=== PATIENT | male | born 1945 | race Caucasian/White ===

== ENCOUNTER → 2017-02-12 | Outpatient (CLI) | payer BC ==
[~2017-02-12] MED LIST: LISI5TAB PO
[2017-02-12 10:55] LABS: HEMATOCRIT 44.6 % (42-52); MEAN CELL VOLUME 87.8 fL (80-100); MEAN CORPUSCULAR HEMOGLOBIN 29.7 pg (25-34); MEAN CORPUSCULAR HGB CONC 33.9 g/dl (32-36); MEAN PLATELET VOLUME 9.7 fL (7.4-10.4); PLATELET COUNT 265 K/uL (130-400); RED BLOOD COUNT 5.08 M/uL (4.7-6.1); WHITE BLOOD COUNT 5.75 K/uL (4.8-10.8)
[2017-02-12 11:22] LABS: ALT/SGPT 26 U/L (12-78); AST/SGOT 21 U/L (15-37); BASO % 0.9 %; BASO ABS # 0.05 K/uL (0-0.2); BLOOD UREA NITROGEN 21 mg/dl (7-18); BUN/CREATININE RATIO 27.6 (10-20); CALCIUM 8.6 mg/dl (8.5-10.1); CARBON DIOXIDE 28 mmol/L (21-32); CHLORIDE 108 mmol/L (98-107); COMPLETE YES; CREATININE 0.76 mg/dl (0.60-1.40); EOS % 5.2 %; GLUCOSE 96 mg/dl (70-99); IG% 0.2 %; LARGE PLATELETS 1+; LYMPH % 52.3 %; LYMPH ABS # 3.01 K/uL (1.2-3.4); MONO % 9.2 %; NEUT % 32.2 %; POTASSIUM 4.1 mmol/L (3.5-5.1); SODIUM 142 mmol/L (136-145)
[2017-02-12 11:33] LABS: ALB/GLOB RATIO 1.1 (0.9-2); ALKALINE PHOSPHATASE 91 U/L (45-117); CHOLESTEROL 214 mg/dl (0-200); HDL CHOLESTEROL 72 mg/dl; LDL CHOLESTEROL CALCULATED 127 mg/dl; TRIGLYCERIDES 74 mg/dl (0-150); VERY LOW DENSITY LIPOPROT CALC 15 mg/dl
== END | disposition home or self-care (01) ==
LOC: C.LAB1850 08:21
PROVIDERS: ATTEND Physician Assistant
DX: Z00.00 Encounter for general adult medical examination without abnormal findings (principal); E78.5 Hyperlipidemia, unspecified; K21.9 Gastro-esophageal reflux disease without esophagitis

== ENCOUNTER → 2017-08-13 | Outpatient (CLI) | payer BC ==
[~2017-08-13] MED LIST changes: +ALPR0.25 PO; +ASPI81TA28 PO; +DOXY100C76 PO
[2017-08-13 17:14] LABS: BASO % 0.5 %; BASO ABS # 0.04 K/uL (0-0.2); COMPLETE YES; EOS % 3.3 %; HEMATOCRIT 46.7 % (42-52); IG% 0.1 %; LYMPH % 38.5 %; LYMPH ABS # 3.06 K/uL (1.2-3.4); MEAN CELL VOLUME 89.1 fL (80-100); MEAN CORPUSCULAR HEMOGLOBIN 29.4 pg (25-34); MEAN PLATELET VOLUME 10.2 fL (7.4-10.4); NEUT % 50.6 %; PLATELET COUNT 263 K/uL (130-400); RED BLOOD COUNT 5.24 M/uL (4.7-6.1); WHITE BLOOD COUNT 7.95 K/uL (4.8-10.8)
[2017-08-13 17:29] LABS: ALT/SGPT 31 U/L (12-78); AST/SGOT 22 U/L (15-37); BLOOD UREA NITROGEN 21 mg/dl (7-18); BUN/CREATININE RATIO 28.3 (10-20); CALCIUM 8.6 mg/dl (8.5-10.1); CARBON DIOXIDE 25 mmol/L (21-32); CHLORIDE 106 mmol/L (98-107); CREATININE 0.76 mg/dl (0.60-1.40); GLUCOSE 77 mg/dl (70-99); POTASSIUM 3.9 mmol/L (3.5-5.1); SODIUM 141 mmol/L (136-145)
[2017-08-13 17:40] LABS: ALB/GLOB RATIO 1.1 (0.9-2); ALKALINE PHOSPHATASE 105 U/L (45-117); THYROID STIMULATING HORMONE 0.873 uIu/ml (0.300-4.500)
[2017-08-13 17:49] LABS: LYME DISEASE AB IGG NEG (NEG)
[2017-08-13 17:54] LABS: LYME DISEASE AB IGM EQUIVOCAL (NEG)
[2017-08-17 19:04] LABS: 18KDIGG BAND NONREACTIVE (NONREACTIVE); 23KDIGG BAND NONREACTIVE (NONREACTIVE); 23KDIGM BAND REACTIVE (NONREACTIVE); 28KDIGG BAND NONREACTIVE (NONREACTIVE); 30KDIGG BAND REACTIVE (NONREACTIVE); 39KDIGG BAND NONREACTIVE (NONREACTIVE); 39KDIGM BAND NONREACTIVE (NONREACTIVE); 41KDIGG BAND NONREACTIVE (NONREACTIVE); 41KDIGM BAND REACTIVE (NONREACTIVE); 45KDIGG BAND NONREACTIVE (NONREACTIVE); 58KDIGG BAND NONREACTIVE (NONREACTIVE); 66KDIGG BAND REACTIVE (NONREACTIVE); 93KDIGG BAND NONREACTIVE (NONREACTIVE)
== END | disposition home or self-care (01) ==
LOC: C.LABBC 14:23
PROVIDERS: ATTEND Physician Assistant
DX: R47.89 Other speech disturbances (principal)

== ENCOUNTER → 2017-08-22 | Outpatient (CLI) | payer BC ==
[~2017-08-22] MED LIST changes: -ALPR0.25 PO; -ASPI81TA28 PO; -DOXY100C76 PO; +GADAVIST IV PRN
--- NOTE | 2017-08-22 15:49 | DIAGNOSTIC IMAGING REPORT ---
ORBIT RADIOGRAPHS 3 VIEWS HISTORY: pre-MRI screening. COMPARISON: None. FINDINGS: There are no radiopaque foreign bodies identified within the orbits. IMPRESSION: No radiopaque foreign bodies identified within the orbits. Electronically signed by: Ricardo Lopes M.D. 08/22/2017 3:48 PM Dictated Date/Time: 08/22/2017 3:47 PM
--- NOTE | 2017-08-22 16:49 | DIAGNOSTIC IMAGING REPORT ---
MRI OF THE BRAIN COMBO CLINICAL HISTORY: Blurry vision. Word finding difficulties. Disorientation. COMPARISON STUDY: No priors. TECHNIQUE: MRI of the brain was performed utilizing various T1 and T2-weighted sequences in the axial, sagittal, and coronal planes. Contrast-enhanced sequences were acquired following the administration of 8 cc of Gadavist. FINDINGS: Brain parenchyma: There are age-related involutional changes noting mild to moderate patchy subcortical and periventricular microangiopathic disease. There is no hemorrhage or mass effect. There is no restricted diffusion to suggest acute ischemia. No enhancing mass lesion is identified on the postcontrast images. Olivier-white matter differentiation is preserved. No extra-axial fluid collection is seen. The cerebellar tonsils are normal in configuration. Ventricles, sulci, and cisterns: Prominent secondary to involutional change. Pituitary and sella: Unremarkable. Intracranial vasculature: Normal flow voids are maintained at the skull base. Orbits: The bony orbits are grossly intact. Orbital contents are normal in appearance. Sinuses and mastoids: Clear. Calvarium: There is approximately 3.0 cm T1 and T2 hypointense lesion in the left posterior parietal calvarium. There is no abnormal enhancement identified on the postcontrast images. No additional calvarial lesion is suggested. Cervical cord: Partially visualized cervical spinal cord is normal in morphology and signal intensity. IMPRESSION: 1. Age-related changes as above with no hemorrhage, enhancing mass, or evidence of acute ischemia. 2. There is a 3 cm indeterminant but low suspicion lesion in the left parietal calvarium. Correlation with a CT scan of the brain is recommended for further assessment. Electronically signed by: Brady Hu M.D. 08/22/2017 4:48 PM Dictated Date/Time: 08/22/2017 4:42 PM
== END | disposition home or self-care (01) ==
LOC: C.MRI 15:01
PROVIDERS: ATTEND Physician Assistant
DX: R47.89 Other speech disturbances (principal)

== ENCOUNTER → 2017-08-30 | Outpatient (CLI) | payer BC ==
[~2017-08-30] MED LIST changes: +ALPR0.25 PO; +ASPI81TA28 PO; +DOXY100C76 PO; -GADAVIST IV PRN; +OPTIRAY 320 IV PRN
--- NOTE | 2017-08-30 15:38 | DIAGNOSTIC IMAGING REPORT ---
CT HEAD COMBO CT DOSE: 1553.72 mGycm TECHNIQUE: Noncontrast images were obtained through the brain in the axial plane. The sequence was repeated following administration of 93 Optiray 320. A dose lowering technique was utilized adhering to the principles of ALARA. HISTORY: ABNORMAL MRI THE BRAIN. CALVARIAL LESION. R93.8 Abnormal MRIPossible [id number] COMPARISON: MRI the brain dated 08/22/2017 FINDINGS: No intra or extra-axial mass lesions are visualized. There is no CT evidence of acute cortical infarction. There is no evidence of midline shift. There is no acute hemorrhage. No calvarial fractures are visualized. There are patchy white matter hypodensities likely on a small vessel basis. There is no evidence of pathologic ventricular dilatation. There is no evidence of acute sinusitis Postcontrast images reveal no pathologically enhancing masses. There is a very subtle 2 cm focus of calvarial sclerosis involving the left parietal vertex. The appearance is nonspecific. In the absence of a known primary malignancy, correlation with a PSA would be recommended. IMPRESSION: 1. Very subtle 2 cm sclerotic lesion involving the left parietal vertex. Correlation with a PSA is recommended. Electronically signed by: Favian Be M.D. 08/30/2017 3:37 PM Dictated Date/Time: 08/30/2017 3:21 PM
== END | disposition home or self-care (01) ==
LOC: C.CTS 14:58
PROVIDERS: ATTEND Physician Assistant
DX: R93.8 Abnormal findings on diagnostic imaging of other specified body structures (principal)

== ENCOUNTER → 2017-09-12 | Day surgery (SDC) | payer BC ==
[2017-08-28 09:20] VITALS: Ht 175.3 cm; Wt 79.5 kg
[~2017-09-12] VITALS: Ht 175.3 cm; Wt 79.5 kg
[~2017-09-12] MED LIST changes: +500ML BSS 0.3ML EPI 1:1000PF IRRIG ONE; +ACETAMINOPHEN 325 MG TAB PO PRN; +AMVISC PLUS 0.8ML SYRINGE INT OCU ONE; +ATROPINE SULFATE 0.1 MG/ML 5ML SYR IV PRN; +BROM0.0911 OP; +BSS FLUSH ONE; +CYCLOPENTOLATE HCL 1% OP SOLN PER DROP CHARGE OPL ONE; +ENDOCOAT 0.85ML SYRINGE INT OCU ONE; +EpHEDrine SULFATE INJ 50 MG/ML AMP IV PRN; +EpINEphrine INJ 1MG/ML AMP 1 MG/ML AMP ONE; +LACTATED RINGER'S 1000ML 500 ML IV SCH; +LIDOCAINE 4% OP SOLN DROP CHARGE ONE; +LIDOCAINE 4% OP SOLN DROP CHARGE OPL SCH; +LIDOCAINE HCL 1% MPF 2 ML VIAL ONE; +MIDAZOLAM HCL 1 MG/ML 2ML VIAL ONE; +MIX: 4ML BSS 1ML EPI 1:1000 PF TOP ONE; +MOXIFLOXACIN OPH SOLN PER DROP CHARGE ONE; +NURSING VERBAL MED ORDER ONE; +OFLO0.3S OP; -OPTIRAY 320 IV PRN; +PHENYLEPHRINE HCL 2.5% OP SOLN PER DROP CHARGE OPL ONE; +POVIDONE-IODINE OP SOLN 30 ML BTL ONE; +PRED1SUS3 OPL; +PROPARACAINE 0.5% OP SOLN PER DROP CHARGE OPL SCH; +TOBRAMYCIN/DEXAMETHASONE OPH OINT PER APPLN CHARGE ONE; +TROPICAMIDE 1% OP SOLN PER DROP CHARGE OPL ONE
[2017-09-12] MEDS: PHENYLEPHRINE HCL 2.5% OP SOLN PER DROP CHARGE OPL SCH ×3 (08:14→08:25)
[2017-09-12] MEDS: TROPICAMIDE 1% OP SOLN PER DROP CHARGE OPL SCH ×3 (08:15→08:27)
[2017-09-12] MEDS: CYCLOPENTOLATE HCL 1% OP SOLN PER DROP CHARGE OPL SCH ×3 (08:16→08:28)
--- NOTE | 2017-09-12 08:17 | History & Physical Bridge - SC ---
H&P Re-Evaluation Bridge Note: I have examined the patient, reviewed the History & Physical and in the interval since the performance of the History & Physical I have noted the following changes of clinical significance: No changes noted
[2017-09-12] MEDS: MOXIFLOXACIN OPH SOLN PER DROP CHARGE OPL SCH ×3 (08:18→08:29)
--- NOTE | 2017-09-12 09:32 | [facility] Post Operative Brief Note ---
Immediate Operative Summary Operative Date Sep 12, 2017. Pre-Operative Diagnosis Cataract Left Eye Post-Operative Diagnosis Same Procedure(s) Performed Left Cataract Phacoemulsification With Intraocular Lens Implant Surgeon Dr. Eason Orchestra Director Surgeon(s) None Estimated Blood Loss 0 Findings left cataract Specimens 0 Complication(s) None Disposition
[2017-09-12 09:33] VITALS: TEMP 36.5
--- NOTE | 2017-09-12 09:34 | [facility] Operative Report ---
Operative Report Date of Service Sep 12, 2017. Operative Report DATE OF OPERATION: 09/12/17 PREOPERATIVE DIAGNOSIS: Senile nuclear cataract, left eye POSTOPERATIVE DIAGNOSIS: Senile nuclear cataract, left eye PROCEDURE PERFORMED: Phacoemulsification with intraocular lens implantation, left eye SURGEON: Dr. Milton Eason ANESTHESIA: Topical with 1% intracameral lidocaine and monitored anesthesia care COMPLICATIONS: None DESCRIPTION OF PROCEDURE: After positively identifying the patient both verbally and by wristband in the preoperative area, the left eye was marked as the operative eye. The patient was then brought back to the operating room by the anesthesia and nursing staff where they were given a drop of Lidocaine and betadine into the operative eye. They were then sterilely prepped and draped in the standard fashion typical for ophthalmic surgery. Steri-strips were placed along the upper eyelids to keep the lashes back, and a lid speculum was placed into the operative eye. At this point, a documented time out was performed with members of the ophthalmology, nursing, and anesthesia staffs all agreeing upon the correct patient, correct location for surgery, correct procedure, and correct type and power of intraocular lens to be implanted. The microscope was then swung into position. First, a paracentesis wound was made using a sideport blade. Then, in sequence, 1% preservative-free lidocaine followed by Endocoat viscoelastic was injected into the anterior chamber. Next , the main incision was made with a keratome blade in triplanar fashion. A Malyugin ring was inserted due to poor pupil dilation. A sharp cystotome was introduced into the eye and used to create a tear in the anterior capsule, which was directed into a continuous curvilinear capsulorrhexis using Utrata forceps. Hydrodissection was then performed with BSS on a flat-tip cannula. Next, the phacoemulsification handpiece was introduced into the eye and used to remove the nucleus in a eaibpt-igy-lybycsa fashion. This was done without complication and then the irrigation-aspiration handpiece was introduced into the eye and used to remove all remaining cortical and epinuclear material. Amvisc was then injected into the anterior chamber as well as into the capsular bag and using the lens injector system, an MX60 20.0 D lens, serial number [id number], and expiration date 02/2020 was injected into the capsular bag and rotated into the correct position. The Malyugin ring was removed. Next, the irrigation-aspiration handpiece was used to remove all remaining Amvisc. BSS was used to hydrate the main wound, and then BSS was injected into the paracentesis site to reach physiologic pressure and then the main wound was checked and found to be watertight. The patient was given drops of Vigamox and Tobradex ointment into the operative eye, and then the surrounding area was cleaned and dried. A clear plastic shield was placed over the eye and the patient was then sat up and taken from the operating room by the anesthesia staff having tolerated the procedure well and suffering no complications. DISPOSITION: The patient was returned to the recovery room in stable condition. I attest to the content of the Intraoperative Record and any orders documented therein. Any exceptions are noted below.
--- NOTE | 2017-09-12 09:35 | Discharge Instructions-SurgCtr ---
Discharge Instructions Date of Service Sep 12, 2017. Visit Reason for Visit: Cataract Left Eye Discharge Discharge Diagnosis / Problem: left cataract Discharge Goals Goal(s): Decrease discomfort, Improve function Activity Recommendations Activity Limitations: as noted below Anesthesia . Post Anesthesia Instructions: If you have had General Anesthesia or IV Sedation: * Do not drive today. * Resume driving when surgeon permits. * Do not make important decisions or sign legal documents today. * Call surgeon for: 1. Temperature elevations greater than 101 degrees F. 2. Uncontrollable pain. 3. Excessive bleeding. 4. Persistent nausea and vomiting. 5. Medication intolerance (nausea, vomiting or rash). * For nausea and vomiting use only clear liquids such as: tea, soda, bouillon until nausea subsides, then gradually increase diet as tolerated. * If you have any concerns or questions, call your surgeon's office. If physician is unavailable and it is an emergency, call 911 or go to the nearest emergency room. . Instructions / Follow-Up Instructions / Follow-Up ACTIVITY RECOMMENDATIONS: * Light activities. * You may walk outside, read, watch television. * You may notice redness on the white part of the eye and some blurry vision - this is normal. MEDICATIONS: Resume previous medications unless instructed otherwise by your surgeon. Start all eye drops at 11:30 am today: * Eye drops (today): Prednisone - one drop in operative eye every 2 hours while awake Ofloxacin - one drop in operative eye every 2 hours while awake Bromfenac - one drop in operative eye daily SPECIAL CARE INSTRUCTIONS: * Tape plastic shield over eye to sleep at night. Call your doctor at with any concerns or problems. FOLLOW UP VISIT: Follow-up with Dr Eason at [facility] as scheduled. Diet Recommendations Home Diet: no limitations Procedures Procedures Performed: Left Cataract Phacoemulsification With Intraocular Lens Implant Pending Studies Studies pending at discharge: no Medical Emergencies . Who to Call and When: Medical Emergencies: If at any time you feel your situation is an emergency, please call 911 immediately. . Non-Emergent Contact Non-Emergency issues call your: Surgeon . . "Provider Documentation" section prepared by Milton Eason. .
--- NOTE | 2017-09-12 09:39 | Anesthesiology Progress Note ---
Anesthesia Post Op Note Date & Time Sep 12, 2017 at 09:38 Vital Signs Pain Intensity: 0 Vital Signs Past 12 Hours Date Time Temp Pulse Resp B/P (MAP) Pulse Ox O2 Delivery O2 Flow Rate FiO2 09/12/17 09:33 36.5 42 16 134/78 (96) 96 Room Air 09/12/17 08:02 36.4 54 16 143/75 (97) 98 Room Air Notes Mental Status: alert / awake / arousable, participated in evaluation Nausea / Vomiting: adequately controlled Pain: adequately controlled Airway Patency, RR, SpO2: stable & adequate BP & HR: stable & adequate Hydration State: stable & adequate Anesthetic Complications: no major complications apparent
[2017-09-12 09:47] VITALS: BP 139/85; PULSE 45; O2SAT 100
== END | disposition home or self-care (01) ==
LOC: X.SURG 07:47
PROVIDERS: ATTEND Ophthalmology
DX: H25.12 Age-related nuclear cataract, left eye (principal); I10 Essential (primary) hypertension; Z83.511 Family history of glaucoma; Z83.518 Family history of other specified eye disorder; F41.9 Anxiety disorder, unspecified; F32.9 Major depressive disorder, single episode, unspecified; Z86.19 Personal history of other infectious and parasitic diseases

== ENCOUNTER → 2017-10-03 | Day surgery (SDC) | payer BC ==
[2017-09-25 09:17] VITALS: Ht 175.3 cm; Wt 79.5 kg
[~2017-10-03] VITALS: Ht 175.3 cm; Wt 79.5 kg
[~2017-10-03] MED LIST changes: -BROM0.0911 OP; -CYCLOPENTOLATE HCL 1% OP SOLN PER DROP CHARGE OPL ONE; -DOXY100C76 PO; -LIDOCAINE 4% OP SOLN DROP CHARGE OPL SCH; +LIDOCAINE 4% OP SOLN DROP CHARGE OPR SCH; -NURSING VERBAL MED ORDER ONE; -OFLO0.3S OP; +ONDANSETRON INJ 2 MG/ML 2 ML VIAL IV PRN; -PHENYLEPHRINE HCL 2.5% OP SOLN PER DROP CHARGE OPL ONE; -PRED1SUS3 OPL; -PROPARACAINE 0.5% OP SOLN PER DROP CHARGE OPL SCH; +PROPARACAINE 0.5% OP SOLN PER DROP CHARGE OPR SCH; -TROPICAMIDE 1% OP SOLN PER DROP CHARGE OPL ONE
[2017-10-03] MEDS: PHENYLEPHRINE HCL 2.5% OP SOLN PER DROP CHARGE OPR SCH ×3 (07:27→07:37)
[2017-10-03] MEDS: TROPICAMIDE 1% OP SOLN PER DROP CHARGE OPR SCH ×3 (07:28→07:38)
[2017-10-03] MEDS: CYCLOPENTOLATE HCL 1% OP SOLN PER DROP CHARGE OPR SCH ×3 (07:29→07:39)
[2017-10-03] MEDS: MOXIFLOXACIN OPH SOLN PER DROP CHARGE OPR SCH ×3 (07:30→07:40)
[2017-10-03 08:35] VITALS: TEMP 36.4
--- NOTE | 2017-10-03 08:35 | [facility] Post Operative Brief Note ---
Immediate Operative Summary Operative Date Oct 03, 2017. Pre-Operative Diagnosis Cataract Right Eye Post-Operative Diagnosis Same Procedure(s) Performed Right Cataract Phacoemulsification With Intraocular Lens Implant Surgeon Dr. Eason [employer] Rep[employer]r Surgeon(s) None Estimated Blood Loss 0 Findings right cataract Specimens None Complication(s) None Disposition
--- NOTE | 2017-10-03 08:36 | [facility] Operative Report ---
Operative Report Date of Service Oct 03, 2017. Operative Report DATE OF OPERATION: 10/03/17 PREOPERATIVE DIAGNOSIS: Senile nuclear cataract, right eye POSTOPERATIVE DIAGNOSIS: Senile nuclear cataract, right eye PROCEDURE PERFORMED: Phacoemulsification with intraocular lens implantation, right eye SURGEON: Dr. Milton Eason ANESTHESIA: Topical with 1% intracameral lidocaine and monitored anesthesia care COMPLICATIONS: None DESCRIPTION OF PROCEDURE: After positively identifying the patient both verbally and by wristband in the preoperative area, the right eye was marked as the operative eye. The patient was then brought back to the operating room by the anesthesia and nursing staff where they were given a drop of Lidocaine and betadine into the operative eye. They were then sterilely prepped and draped in the standard fashion typical for ophthalmic surgery. Steri-strips were placed along the upper eyelids to keep the lashes back, and a lid speculum was placed into the operative eye. At this point, a documented time out was performed with members of the ophthalmology, nursing, and anesthesia staffs all agreeing upon the correct patient, correct location for surgery, correct procedure, and correct type and power of intraocular lens to be implanted. The microscope was then swung into position. First, a paracentesis wound was made using a sideport blade. Then, in sequence, 1% preservative-free lidocaine followed by Endocoat viscoelastic was injected into the anterior chamber. Next , the main incision was made with a keratome blade in triplanar fashion. A Malyugin ring was inserted due to poor pupil dilation. A sharp cystotome was introduced into the eye and used to create a tear in the anterior capsule, which was directed into a continuous curvilinear capsulorrhexis using Utrata forceps. Hydrodissection was then performed with BSS on a flat-tip cannula. Next, the phacoemulsification handpiece was introduced into the eye and used to remove the nucleus in a [id number]-rqb-lmwlgit fashion. This was done without complication and then the irrigation-aspiration handpiece was introduced into the eye and used to remove all remaining cortical and epinuclear material. Amvisc was then injected into the anterior chamber as well as into the capsular bag and using the lens injector system, an MX60 21.5 D lens, serial number [id number], and expiration date 04/2020 was injected into the capsular bag and rotated into the correct position. The Malyugin ring was removed. Next, the irrigation-aspiration handpiece was used to remove all remaining Amvisc. BSS was used to hydrate the main wound, and then BSS was injected into the paracentesis site to reach physiologic pressure and then the main wound was checked and found to be watertight. The patient was given drops of Vigamox and Tobradex ointment into the operative eye, and then the surrounding area was cleaned and dried. A clear plastic shield was placed over the eye and the patient was then sat up and taken from the operating room by the anesthesia staff having tolerated the procedure well and suffering no complications. DISPOSITION: The patient was returned to the recovery room in stable condition. I attest to the content of the Intraoperative Record and any orders documented therein. Any exceptions are noted below.
--- NOTE | 2017-10-03 08:37 | Discharge Instructions-SurgCtr ---
Discharge Instructions Date of Service Oct 03, 2017. Visit Reason for Visit: Right Cataract Discharge Discharge Diagnosis / Problem: right cataract Discharge Goals Goal(s): Decrease discomfort, Improve function Activity Recommendations Activity Limitations: as noted below Anesthesia . Post Anesthesia Instructions: If you have had General Anesthesia or IV Sedation: * Do not drive today. * Resume driving when surgeon permits. * Do not make important decisions or sign legal documents today. * Call surgeon for: 1. Temperature elevations greater than 101 degrees F. 2. Uncontrollable pain. 3. Excessive bleeding. 4. Persistent nausea and vomiting. 5. Medication intolerance (nausea, vomiting or rash). * For nausea and vomiting use only clear liquids such as: tea, soda, bouillon until nausea subsides, then gradually increase diet as tolerated. * If you have any concerns or questions, call your surgeon's office. If physician is unavailable and it is an emergency, call 911 or go to the nearest emergency room. . Instructions / Follow-Up Instructions / Follow-Up ACTIVITY RECOMMENDATIONS: * Light activities. * You may walk outside, read, watch television. * You may notice redness on the white part of the eye and some blurry vision - this is normal. MEDICATIONS: Resume previous medications unless instructed otherwise by your surgeon. Start all eye drops at 11:30 am today: * Eye drops (today): Prednisone - one drop in operative eye every 2 hours while awake Ofloxacin - one drop in operative eye every 2 hours while awake Ilevro - one drop in operative eye daily SPECIAL CARE INSTRUCTIONS: * Tape plastic shield over eye to sleep at night. Call your doctor at with any concerns or problems. FOLLOW UP VISIT: Follow-up with Dr Eason at [place] office as scheduled. Diet Recommendations Home Diet: no limitations Procedures Procedures Performed: Right Cataract Phacoemulsification With Intraocular Lens Implant Pending Studies Studies pending at discharge: no Medical Emergencies . Who to Call and When: Medical Emergencies: If at any time you feel your situation is an emergency, please call 911 immediately. . Non-Emergent Contact Non-Emergency issues call your: Surgeon . . "Provider Documentation" section prepared by Milton Eason. .
[2017-10-03 08:52] VITALS: BP 130/79; PULSE 50; O2SAT 99
--- NOTE | 2017-10-03 08:56 | Anesthesia Progress Nt - [facility] ---
Anesthesia Post Op Note Date & Time Oct 03, 2017 at 08:55 Vital Signs Pain Intensity: 0 Vital Signs Past 12 Hours Date Time Temp Pulse Resp B/P (MAP) Pulse Ox O2 Delivery O2 Flow Rate FiO2 10/03/17 08:52 50 16 130/79 (96) 99 Room Air 10/03/17 08:35 36.4 48 16 124/78 (93) 99 Room Air 10/03/17 07:22 36.4 54 16 125/76 (92) 95 Room Air Notes Mental Status: alert / awake / arousable, participated in evaluation Pt Amnestic to Procedure: Yes Nausea / Vomiting: adequately controlled Pain: adequately controlled Airway Patency, RR, SpO2: stable & adequate BP & HR: stable & adequate Hydration State: stable & adequate Anesthetic Complications: no major complications apparent
== END | disposition home or self-care (01) ==
LOC: X.SURG 07:07
PROVIDERS: ATTEND Ophthalmology
DX: H25.11 Age-related nuclear cataract, right eye (principal); I10 Essential (primary) hypertension; Z79.899 Other long term (current) drug therapy

== ENCOUNTER 2020-10-27 00:48 | Observation (INO) ==
--- OUTSIDE RECORDS SUMMARY | 2020-10-27 00:51 | External Medical Summary | Continuity of Care Document ---
:1945 Author Name Wisam Church, Provider Address Unavailable Unavailable , Care Team Providers Name Role Phone Unavailable Unavailable Unavailable Ivan MORAN, Karen Unavailable [email or web address] Poncho Calzada DO Unavailable [email or web address] PONCHO CALZADA Unavailable Unavailable Joann HAMEED Unavailable [email or web address] Unavailable Unavailable Unavailable Problems Dyslipidemia (272.4) (E78.5) Neck pain (723.1) (M54.2) Lightheadedness (780.4) (R42) Right shoulder pain (719.41) (M25.511) Shoulder pain (719.41) (M25.519) Nephrolithiasis (592.0) (N20.0) Esophageal reflux (530.81) (K21.9) Allergic rhinitis (477.9) (J30.9) Anxiety (300.00) (F41.9) Hypertension (401.9) (I10) Word finding difficulty (V40.1) (R47.89) Unspecified osteoarthritis, unspecified site (715.90) (M19.9 0) Holter monitor, abnormal (794.31) (R94.31) Encounter for screening colonoscopy (V76.51) (Z12.11) 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 continued therapy DO Poncho Calzada Quantity: 30 Refills: 1 Aspirin 81 MG Oral Tablet Chewable; CHEW AND SWALLOW 1 TABLET DAILY. [employer]AK[employer]ER Love Start: 13-Aug-2017 Quantity: 30 Refills: 6 Procedures Procedures not documented Immunizations Influenza On: 21-Aug-2016 10:23 Lot #: [id number], [employer] Prevnar 13 Intramuscular Suspension On: 30-Nov-2016 15:13 Lot #: [id number], [place] Fluzone High-Dose Intramuscular Suspension On: 18-Sep-2017 1 0:20 Lot #: [id number], [employer] Pneumovax 23 25 MCG/0.5ML Injection Injectable On: 16-May-20 18 13:20 Lot #: [id number], [employer] Family History Father Family history of Coronary Artery Disease Status: Active Family history of hypertension (V17.49) (Z82.49) Status: Act gurvinder Family history of cardiac disorder (V17.49) (Z82.49) Status: Active Family history of gallbladder disease (V18.59) (Z83.79) Stat us: Active Family history of alcohol abuse (V61.41) (Z81.1) Status: Act gurvinder Family history of myocardial infarction (V17.3) (Z82.49) Sta tus: Active Sister Family history of Colon Cancer (V16.0) Status: Active Grandmother Family history of malignant neoplasm of breast (V16.3) (Z80. 3) Status: Active Brother Family history of hypertension (V17.49) (Z82.49) Status: Act gurvinder Social History - Smoking Status Never smoked tobacco Plan of Treatment Planned Observations Planned Goals not documented Results No Known Results Results not documented
[2020-10-27] MEDS ORDERED: FAMOTIDINE 20MG/5ML IV PUSH IV STA (00:59)
[2020-10-27] MEDS ORDERED: ONDANSETRON INJ 2 MG/ML 2 ML VIAL IV STA ×2 (00:59→03:56)
[2020-10-27] MEDS ORDERED: SODIUM CHLORIDE 0.9% 500 ML IV SCH (01:00)
--- NOTE | 2020-10-27 01:13 | Emergency Department Note ---
History of Present Illness General Chief complaint: Nausea Stated complaint: NAUSEA/VOMITING Time Seen by Provider: 10/27/20 00:51 History of Present Illness Maximum Pain Intensity: 1 This 74-year-old presents to the ER complaining of nausea vomiting diarrhea and epigastric discomfort tonight Location: Abdomen Quality: Nauseated Severity: Moderate Duration: Tonight Timing: Tonight Context: Patient was concerned and came in Modifying factors: better with nothing; worse with activity Patient states he was feeling fine all day until bedtime when he got nauseated lightheaded and sweaty. He has vomited several times and feels slightly better. No blood or black in it. Patient denies chest pain, dyspnea, fever, chills, flulike illness. He denies risk factors for Covid. Home Medications Medication Instructions Recorded Confirmed Type alprazolam 0.5 mg PO HS PRN 10/27/20 10/27/20 History aspirin [Aspirin Low Dose] 81 mg PO DAILY 10/27/20 10/27/20 History lisinopril 5 mg PO DAILY 10/27/20 10/27/20 History Allergies Allergy/AdvReac Type Severity Reaction Status Date / Time tetanus toxoid, adsorbed Allergy Unknown Unknown Verified 10/27/20 01:16 Past Med/Surg History Medical History (Updated 10/27/20 @ 05:10 by Prince Messina MD) Hypertension Insomnia Surgical History No pertinent past surgical history Social History Smoking Status: Never smoker Feels Safe at Home: Yes Review of Systems A total of 10 systems reviewed and were otherwise negative Physical Exam Vital Signs Vital Signs - 24 hr 10/27/20 00:57 10/27/20 01:33 10/27/20 01:59 Temperature 36.6 C Temperature Source Oral Pulse Rate 55 L Pulse Rate [Bilateral Apical] 54 L 61 Respiratory Rate 20 20 20 Blood Pressure 187/102 H Blood Pressure [Right Arm] 175/99 H 182/93 H Blood Pressure Mean 130 Blood Pressure Mean [Right Arm] 124 122 Pulse Oximetry 99 99 99 Oxygen Delivery Method Room Air Room Air Room Air Sepsis Recent Fever Within 48 Hours No Sepsis New/Unexplained Change in Mental Status N/A Sepsis Action Taken by Nursing No Action Required 10/27/20 02:50 10/27/20 03:39 10/27/20 04:15 Temperature Temperature Source Pulse Rate Pulse Rate [Bilateral Apical] 67 69 72 Respiratory Rate 20 20 20 Blood Pressure Blood Pressure [Right Arm] 180/102 H 175/97 H 165/95 H Blood Pressure Mean Blood Pressure Mean [Right Arm] 128 123 118 Pulse Oximetry 99 98 94 Oxygen Delivery Method Room Air Room Air Room Air Sepsis Recent Fever Within 48 Hours Sepsis New/Unexplained Change in Mental Status Sepsis Action Taken by Nursing 10/27/20 05:16 Temperature Temperature Source Pulse Rate Pulse Rate [Bilateral Apical] 67 Respiratory Rate 20 Blood Pressure Blood Pressure [Right Arm] 162/92 H Blood Pressure Mean Blood Pressure Mean [Right Arm] 115 Pulse Oximetry 98 Oxygen Delivery Method Room Air Sepsis Recent Fever Within 48 Hours Sepsis New/Unexplained Change in Mental Status Sepsis Action Taken by Nursing VITALS: Vitals are noted on the nurse's note and reviewed by myself. Vital signs stable. GENERAL: Elderly male, in no acute distress, nondiaphoretic, well-developed well-nourished. SKIN: Capillary reflex less than 2 seconds. HEENT: Normocephalic. PERRLA. EOMI. Nares patent. Mucous membranes mildly dry t. Neck is supple without nuchal rigidity. HEART: Regular rate and rhythm LUNGS: Clear to auscultation bilaterally without wheezes, rales or rhonchi. No retractions or accessory muscle use. ABDOMEN: Positive bowel sounds x 4. Normal tympanic percussion. Soft, tender to palpation mid abdomen, without masses or organomegaly. Leon sign negative. No guarding or rebound tenderness. No CVA tenderness MUSCULOSKELETAL: No gross musculoskeletal defects. NEURO: Patient was alert and oriented to person place and time. No focal neurological deficits. Course Administered Medications Discontinued Medications Famotidine (Famotidine 20mg/5ml Iv Push) 20 mg IV ONE STA Stop: 10/27/20 01:00 Last Admin: 10/27/20 01:35 Dose: 20 mg Documented by: [id number] Sodium Chloride (Nss) 500 mls @ 999 mls/hr IV .Q31M ATA Stop: 10/27/20 01:30 Last Infusion: 10/27/20 02:05 Dose: 0 mls/hr Documented by: [id number] Admin: 10/27/20 01:35 Dose: 999 mls/hr Documented by: [id number] Sodium Chloride (Nss 1000ml) 500 mls @ 999 mls/hr IV .Q31M ONE Stop: 10/27/20 04:26 Last Infusion: 10/27/20 05:13 Dose: 0 mls/hr Documented by: [id number] Admin: 10/27/20 04:05 Dose: 999 mls/hr Documented by: [id number] Ioversol (Ioversol 100ml) 100 ml IV ONCE ONE Stop: 10/27/20 03:32 Last Admin: 10/27/20 03:31 Dose: 92 ml Documented by: [id number] Ondansetron HCl (Ondansetron Inj 2 Mg/Ml 2 Ml Vial) 4 mg IV NOW STA Stop: 10/27/20 01:00 Last Admin: 10/27/20 01:35 Dose: 4 mg Documented by: [id number] Ondansetron HCl (Ondansetron Inj 2 Mg/Ml 2 Ml Vial) 4 mg IV NOW STA Stop: 10/27/20 03:57 Last Admin: 10/27/20 04:14 Dose: 4 mg Documented by: [id number] Medical Decision Making Medical Records Attestation: I reviewed the patient's medical records. Home Medications Current Medication List: was personally reviewed by me Laboratory Data Attestation: I reviewed the patient's lab results. Result diagrams: 10/27/20 01:24 10/27/20 01:24 Lab Results 10/27/20 10/27/20 10/27/20 Range/Units 01:24 01:24 03:00 WBC 10.71 (4.8-10.8) K/uL RBC 4.86 (4.7-6.1) M/uL Hgb 14.9 (14.0-18.0) g/dL Hct 43.6 (42-52) % MCV 89.7 (80-100) fL MCH 30.7 (25-34) pg MCHC 34.2 (32-36) g/dL RDW Std Deviation 45.8 (36.4-46.3) fL RDW Coeff of Joan 13.9 (11.5-14.5) % Plt Count 218 (130-400) K/uL MPV 10.0 (7.4-10.4) fL Immature Gran % (Auto) 0.3 % Neut % (Auto) 69.6 % Lymph % (Auto) 20.0 % [place] % (Auto) 7.8 % Eos % (Auto) 1.9 % Baso % (Auto) 0.4 % Neut # (Auto) 7.46 H (1.4-6.5) K/uL Lymph # (Auto) 2.14 (1.2-3.4) K/uL [place] # (Auto) 0.84 H (0.11-0.59) K/uL Eos # (Auto) 0.20 (0-0.5) K/uL Baso # (Auto) 0.04 (0-0.2) K/uL Immature Gran # (Auto) 0.03 H (0.00-0.02) K/uL Sodium 139 (136-145) mmol/L Potassium 3.5 (3.5-5.1) mmol/L Chloride 104 (98-107) mmol/L Carbon Dioxide 29 (21-32) mmol/L Anion Gap 6.0 (3-11) BUN 31 H (7-18) mg/dl Creatinine 0.85 (0.6-1.4) mg/dl Est Cr Clr Drug Dosing 75.1 ml/min Est GFR ( Amer) 98.8 Est GFR (Non-Af Amer) 85.2 BUN/Creatinine Ratio 36.5 H (10-20) Glucose 131 H (70-99) mg/dl Calcium 8.6 (8.5-10.1) mg/dl Total Bilirubin 0.7 (0.2-1) mg/dl AST 30 (15-37) U/L ALT 50 (12-78) U/L Alkaline Phosphatase 102 (45-117) U/L Troponin I < 0.015 (0-0.045) ng/ml Total Protein 7.5 (6.4-8.2) gm/dl Albumin 3.8 (3.4-5.0) gm/dl Globulin 3.7 (2.5-4.0) gm/dl Albumin/Globulin Ratio 1.0 (0.9-2) Lipase 147 (73-393) U/L Urine Color Yellow Urine Appearance Clear (Clear) Urine pH 7.0 (4.5-7.5) Ur Specific [place] 1.015 (1.000-1.030) Urine Protein Negative (Negative) Urine Glucose (UA) Negative (Negative) Urine Ketones Trace H (Negative) Urine Blood 2+ H (Negative) Urine Nitrite Negative (Negative) Urine Bilirubin Negative (Negative) Urine Urobilinogen Negative (Negative) Ur Leukocyte Esterase Negative (Negative) Urine RBC >30 H (0-4) /hpf Urine WBC 0-5 (0-5) /hpf Ur Epithelial Cells 0-5 (0-5) /lpf Urine Bacteria Negative (Negative) SARS-CoV-2 Ag (Rapid) (Negative) 10/27/20 Range/Units 04:29 WBC (4.8-10.8) K/uL RBC (4.7-6.1) M/uL Hgb (14.0-18.0) g/dL Hct (42-52) % MCV (80-100) fL MCH (25-34) pg MCHC (32-36) g/dL RDW Std Deviation (36.4-46.3) fL RDW Coeff of Joan (11.5-14.5) % Plt Count (130-400) K/uL MPV (7.4-10.4) fL Immature Gran % (Auto) % Neut % (Auto) % Lymph % (Auto) % [place] % (Auto) % Eos % (Auto) % Baso % (Auto) % Neut # (Auto) (1.4-6.5) K/uL Lymph # (Auto) (1.2-3.4) K/uL [place] # (Auto) (0.11-0.59) K/uL Eos # (Auto) (0-0.5) K/uL Baso # (Auto) (0-0.2) K/uL Immature Gran # (Auto) (0.00-0.02) K/uL Sodium (136-145) mmol/L Potassium (3.5-5.1) mmol/L Chloride (98-107) mmol/L Carbon Dioxide (21-32) mmol/L Anion Gap (3-11) BUN (7-18) mg/dl Creatinine (0.6-1.4) mg/dl Est Cr Clr Drug Dosing ml/min Est GFR ( Amer) Est GFR (Non-Af Amer) BUN/Creatinine Ratio (10-20) Glucose (70-99) mg/dl Calcium (8.5-10.1) mg/dl Total Bilirubin (0.2-1) mg/dl AST (15-37) U/L ALT (12-78) U/L Alkaline Phosphatase (45-117) U/L Troponin I (0-0.045) ng/ml Total Protein (6.4-8.2) gm/dl Albumin (3.4-5.0) gm/dl Globulin (2.5-4.0) gm/dl Albumin/Globulin Ratio (0.9-2) Lipase (73-393) U/L Urine Color Urine Appearance (Clear) Urine pH (4.5-7.5) Ur Specific [place] (1.000-1.030) Urine Protein (Negative) Urine Glucose (UA) (Negative) Urine Ketones (Negative) Urine Blood (Negative) Urine Nitrite (Negative) Urine Bilirubin (Negative) Urine Urobilinogen (Negative) Ur Leukocyte Esterase (Negative) Urine RBC (0-4) /hpf Urine WBC (0-5) /hpf Ur Epithelial Cells (0-5) /lpf Urine Bacteria (Negative) SARS-CoV-2 Ag (Rapid) Negative (Negative) Imaging Data Attestation: I personally reviewed and interpreted this imaging study as follows: MDM Narrative Prior records/ancillary studies reviewed. Triage Nursing notes reviewed. The patient's history was concerning for nausea, vomiting, diarrhea, and abdominal pain. Differential diagnosis: Etiologies such as gastroenteritis, food borne illness, infections, appendicitis, diverticulitis, inflammatory bowel disease, obstruction, GI bleed, biliary pathology, as well as others were entertained. Physical examination findings: As above. Abdominal examination revealed mild diffuse tenderness. Vital signs reviewed and revealed stable. ER treatment provided: IV hydration NSS. Zofran, Pepcid On reassessment the patient felt minimally better Diagnostics interpretation by me: EKG ordered for nausea EKG: Normal sinus, first-degree AV block, no acute ST-T wave changes, rate of 53. Impression sinus bradycardia with a first-degree AV block interpreted by myself I think arrhythmia is unlikely. EKG shows normal sinus rhythm with no interval a bnormalities such as QT prolongation or WPW. There are no findings to suggest Brugada syndrome. Cardiac monitoring in the emergency department reveals no tachycardic or bradycardic dysrhythmia. Hypertrophic cardiomyopathy was considered but there are no clear historical elements pointing toward this. EKG is not suggestive. The QRS voltage is not extremely large and there are no suggestive Q waves. The labs revealed stable H&H No leukocytosis Imaging studies: CT ABDOMEN & PELVIS With Contrast: Bilateral renal hypodensities which may be cysts. No hydronephrosis. No bowel dilatation. Unremarkable appendix. Sigmoid diverticulosis. Mild thickening versus incomplete distention of the transverse and descending colon. Unable to exclude nonspecific colitis in the appropriate clinical setting. No calcified gallstones. No abdominal aortic aneurysm. Enlarged prostate gland. Fat-containing left inguinal hernia. Radiologist: Jimi Mead M.D. Chest x-ray with no acute consolidation, pneumothorax or free air per my interpretation CT HEAD: Comparison to August 30, 2017. The paranasal sinuses and mastoid air cells are normally aerated. There is no skull fracture or scalp hematoma. There is a normal gyral pattern of the brain. There is no mass lesion or midline shift. The saunders-white matter differentiation is maintained. There is mild deep white matter low density bilaterally consistent with chronic small vessel disease. There is no evidence of acute large vessel infarct or intracranial hemorrhage. Radiologist: Armando Lebron MD Consultation: A consultation was placed with the hospitalist. The case was discussed and diagnostics were reviewed. The patient was evaluated in the ER for further treatment. This appears to be consistent with intractable nausea vomiting with diarrhea and dehydration. Patient still feeling quite sick to the stomach. Medicine was consulted. He will be evaluated for possible admission. By the evaluation outlined above emergent etiologies such as appendicitis, diverticulitis, obstruction, cardiac sources, mesenteric ischemia, aortic pathology, i nflammatory bowel disease, renal colic, PUD, biliary pathology, UTI, as well as others were deemed relatively unlikely. The pt informed about the findings as listed above. All questions were answered and pleased with the treatment. The chart was completed utilizing [employer] Speech voice recognition software. Grammatical errors, random word insertions, pronoun errors, and incomplete sentences are an occassional consequence of this system due to software limitations, ambient noise, and hardware issues. Any formal questions or concerns about the content, text, or information contained within the body of this dictation should be directly addressed to the physician education administrative assistant for clarification. Impression & Plan Nausea vomiting and diarrhea, Intractable nausea and vomiting Discharge Plan Visit Data Chief Complaint: Nausea Stated Complaint: NAUSEA/VOMITING ED Provider: Jenni Leggett ED Midlevel Provider: Patricia Davis Discharge Problem: Nausea vomiting and diarrhea, Intractable nausea and vomiting Patient Disposition: Being Evaluated by Hospitalist Condition: Good Forms Stand Alone Forms: My [facility] Prescriptions Prescriptions: No Action aspirin [Aspirin Low Dose] 81 mg Tablet,Delayed Release (Dr/Ec) 81 mg PO DAILY RF: 0 alprazolam 0.5 mg tablet 0.5 mg PO HS PRN (Reason: Insomnia) RF: 0 lisinopril 5 mg tablet 5 mg PO DAILY RF: 0 Referrals Referrals: Paul Pettit [Primary Care Provider] -
[2020-10-27 01:55] LABS: Basophils # (auto) 0.04 K/uL (0-0.2); Basophils % (auto) 0.4 %; Eosinophils % (auto) 1.9 %; Hematocrit (blood only) 43.6 % (42-52); Hemoglobin 14.9 g/dL (14.0-18.0); Immature Granulocytes # (auto) 0.03 K/uL (0.00-0.02); Immature Granulocytes % (auto) 0.3 %; Lymphocytes # (auto) 2.14 K/uL (1.2-3.4); Mean Corpuscular Hemoglobin 30.7 pg (25-34); Mean Corpuscular Hgb Conc 34.2 g/dL (32-36); Mean Corpuscular Volume 89.7 fL (80-100); Monocytes # (auto) 0.84 K/uL (0.11-0.59); Monocytes % (auto) 7.8 %; Neutrophils # (auto) 7.46 K/uL (1.4-6.5); Neutrophils % (auto) 69.6 %; Platelet Count 218 K/uL (130-400); RDW Coefficient of Variation 13.9 % (11.5-14.5); RDW Standard Deviation 45.8 fL (36.4-46.3); Red Blood Count 4.86 M/uL (4.7-6.1); White Blood Count 10.71 K/uL (4.8-10.8)
[2020-10-27 02:25] LABS: Alanine Aminotransferase 50 U/L (12-78); Albumin Level 3.8 gm/dl (3.4-5.0); Aspartate Aminotransferase 30 U/L (15-37); BUN Creatinine Ratio 36.5 (10-20); Blood Urea Nitrogen 31 mg/dl (7-18); Calcium 8.6 mg/dl (8.5-10.1); Carbon Dioxide 29 mmol/L (21-32); Chloride 104 mmol/L (98-107); Creatinine Clr Calc Pharmacy 75.1 ml/min; Est GFR (African American) 98.8; Est GFR (Non-African American) 85.2; Glucose 131 mg/dl (70-99); Lipase 147 U/L (73-393); Potassium 3.5 mmol/L (3.5-5.1); Sodium 139 mmol/L (136-145)
[2020-10-27 02:30] LABS: Alkaline Phosphatase 102 U/L (45-117); Bilirubin,Total 0.7 mg/dl (0.2-1); Globulin 3.7 gm/dl (2.5-4.0); Total Protein 7.5 gm/dl (6.4-8.2); Troponin I < 0.015 ng/ml (0-0.045)
[2020-10-27 03:18] LABS: Appearance Urine Clear (Clear); Bilirubin Urine Negative (Negative); Blood Urine 2+ (Negative); Color Urine Yellow; Glucose Urine UA Negative (Negative); Ketones Urine Trace (Negative); Leukocyte Esterase Urine Negative (Negative); Nitrite Urine Negative (Negative); Protein Urine Negative (Negative); Specific Gravity Urine 1.015 (1.000-1.030); Urobilinogen Urine Negative (Negative)
[2020-10-27 03:25] LABS: Bacteria Urine Negative (Negative); Epithelial Cell Urine 0-5 /lpf (0-5); RBC Urine >30 /hpf (0-4); WBC Urine 0-5 /hpf (0-5)
[2020-10-27] MEDS ORDERED: IOVERSOL 100ml IV ONE (03:31)
[2020-10-27] MEDS ORDERED: SODIUM CHLORIDE 0.9% 1000ML 500 ML IV ONE (03:56)
[2020-10-27] MEDS ORDERED: hydrALAZINE HCL 20 MG/ML VIAL IV PRN (05:10)
--- NOTE | 2020-10-27 05:13 | History & Physical Report ---
Date of Service October 27, 2020 Assessment & Plan (1) Nausea vomiting and diarrhea: Patient's symptom onset are most suggestive of some type of endotoxin food poisoning. NPO NSS + KCl 20 mEq at 100 mils per hour Zofran 4 mg IV every 6 hours as needed Phenergan 25 mg IV every 6 hours as needed Famotidine 20 mg IV every 12 hours Present on Admission?: Yes (2) Insomnia: Hold oral Xanax. Place on lorazepam 0.5 mg IV at bedtime as needed Present on Admission?: Yes (3) Hypertension: Hold lisinopril while n.p.o. Hydralazine 10 mg IV every 4 hours as needed systolic blood pressure greater than 160 Present on Admission?: Yes History of Present Illness Chief Complaint: The patient presents to the emergency department with acute onset of nausea, vomiting and diarrhea about 1030 this evening. Primary Care Provider: Paul Pettit The patient is a 74-year-old male with a past medical history including insomnia and hypertension, who presents to the emergency department with the acute onset at 1030 this evening of nausea, vomiting and diarrhea. The nausea and vomiting have persisted. Patient denies any questionable food intakes, although he did eat steak that he likes to eat rare, and had been baking some type of tart. He denies any recent travels or sick exposures, [facility] He has not had symptoms like this before. He also feels very fatigued and generally weak. Allergies Allergy/AdvReac Type Severity Reaction Status Date / Time tetanus toxoid, adsorbed Allergy Unknown Unknown Verified 10/27/20 01:16 Home Medications Medication Instructions Recorded Confirmed Type alprazolam 0.5 mg PO HS PRN 10/27/20 10/27/20 History aspirin [Aspirin Low Dose] 81 mg PO DAILY 10/27/20 10/27/20 History lisinopril 5 mg PO DAILY 10/27/20 10/27/20 History Past Med/Surg History Medical History High blood pressure Surgical History No pertinent past surgical history Social History Smoking Status: Never smoker Feels Safe at Home: Yes Review of Systems 2 Review of Systems: The patient denies chest pain, palpitations, shortness of breath, dyspnea on exertion, cough, lower extremity swelling, sore throat, fevers, chills, sweats, constipation, abdominal pain, pelvic pain, blood in urine or stool, dysuria, urinary frequency or urgency, memory loss, loss of consciousness, rash, abnormal bruising or bleeding, imbalance, focal weakness, numbness or tingling in arms or legs, generalized arthralgias or myalgias, back or neck pain, or night sweats. The review of systems is otherwise negative other than for that already noted above, and at least 10 systems have been reviewed. Physical Exam Physical Exam: The patient is awake, alert and oriented 3, looks very fatigued, normocephalic and atraumatic, lying in bed and in no acute distress. HEENT--PERRL, EOMI, mucous membranes and oropharynx dry. Neck--supple. No JVD. No bruits. Thyroid normal, trachea midline, no adenopathy. Heart--normal S1 and S2. No murmurs, rubs or gallops. Lungs--clear bilaterally, no respiratory distress, no accessory muscle use. Abdomen--normal bowel sounds and soft. Nontender. Nondistended, no hernias or masses, no organomegaly. Extremities--no cyanosis or clubbing. No edema. Dermatologic--normal skin turgor, normal color, no abnormal lymph nodes, no rash. Neurologic--cranial nerves II through XII grossly intact. Rheumatologic--normal range of motion. Psychiatric--normal affect. Results & Data Results & Data ([facility]) Vital Signs (Past 12 Hours) Vital Signs Temp Pulse Pulse Resp BP BP Pulse Ox 10/27/20 04:15 72 20 165/95 H 94 10/27/20 03:39 69 20 175/97 H 98 10/27/20 02:50 67 20 180/102 H 99 10/27/20 01:59 61 20 182/93 H 99 10/27/20 01:33 54 L 20 175/99 H 99 10/27/20 00:57 97.9 F 55 L 20 187/102 H 99 Laboratory Results Laboratory Results WBC 10.71 K/uL (4.8-10.8) 10/27/20 01:24 RBC 4.86 M/uL (4.7-6.1) 10/27/20 01:24 Hgb 14.9 g/dL (14.0-18.0) 10/27/20 01:24 Hct 43.6 % (42-52) 10/27/20 01:24 MCV 89.7 fL (80-100) 10/27/20 01:24 MCH 30.7 pg (25-34) 10/27/20 01:24 MCHC 34.2 g/dL (32-36) 10/27/20 01:24 RDW Std Deviation 45.8 fL (36.4-46.3) 10/27/20 01:24 RDW Coeff of Joan 13.9 % (11.5-14.5) 10/27/20 01:24 Plt Count 218 K/uL (130-400) 10/27/20 01:24 MPV 10.0 fL (7.4-10.4) 10/27/20 01:24 Immature Gran % (Auto) 0.3 % 10/27/20 01:24 Neut % (Auto) 69.6 % 10/27/20 01:24 Lymph % (Auto) 20.0 % 10/27/20 01:24 [place] % (Auto) 7.8 % 10/27/20 01:24 Eos % (Auto) 1.9 % 10/27/20 01:24 Baso % (Auto) 0.4 % 10/27/20 01:24 Neut # (Auto) 7.46 K/uL (1.4-6.5) H 10/27/20 01:24 Lymph # (Auto) 2.14 K/uL (1.2-3.4) 10/27/20 01:24 [place] # (Auto) 0.84 K/uL (0.11-0.59) H 10/27/20 01:24 Eos # (Auto) 0.20 K/uL (0-0.5) 10/27/20 01:24 Baso # (Auto) 0.04 K/uL (0-0.2) 10/27/20 01:24 Immature Gran # (Auto) 0.03 K/uL (0.00-0.02) H 10/27/20 01:24 Sodium 139 mmol/L (136-145) 10/27/20 01:24 Potassium 3.5 mmol/L (3.5-5.1) 10/27/20 01:24 Chloride 104 mmol/L (98-107) 10/27/20 01:24 Carbon Dioxide 29 mmol/L (21-32) 10/27/20 01:24 Anion Gap 6.0 (3-11) 10/27/20 01:24 BUN 31 mg/dl (7-18) H 10/27/20 01:24 Creatinine 0.85 mg/dl (0.6-1.4) 10/27/20 01:24 Est Cr Clr Drug Dosing 75.1 ml/min 10/27/20 01:24 Est GFR ( Amer) 98.8 10/27/20 01:24 Est GFR (Non-Af Amer) 85.2 10/27/20 01:24 BUN/Creatinine Ratio 36.5 (10-20) H 10/27/20 01:24 Glucose 131 mg/dl (70-99) H 10/27/20 01:24 Calcium 8.6 mg/dl (8.5-10.1) 10/27/20 01:24 Total Bilirubin 0.7 mg/dl (0.2-1) 10/27/20 01:24 AST 30 U/L (15-37) 10/27/20 01:24 ALT 50 U/L (12-78) 10/27/20 01:24 Alkaline Phosphatase 102 U/L (45-117) 10/27/20 01:24 Troponin I < 0.015 ng/ml (0-0.045) 10/27/20 01:24 Total Protein 7.5 gm/dl (6.4-8.2) 10/27/20 01:24 Albumin 3.8 gm/dl (3.4-5.0) 10/27/20 01:24 Globulin 3.7 gm/dl (2.5-4.0) 10/27/20 01:24 Albumin/Globulin Ratio 1.0 (0.9-2) 10/27/20 01:24 Lipase 147 U/L (73-393) 10/27/20 01:24 Urine Color Yellow 10/27/20 03:00 Urine Appearance Clear (Clear) 10/27/20 03:00 Urine pH 7.0 (4.5-7.5) 10/27/20 03:00 Ur Specific [place] 1.015 (1.000-1.030) 10/27/20 03:00 Urine Protein Negative (Negative) 10/27/20 03:00 Urine Glucose (UA) Negative (Negative) 10/27/20 03:00 Urine Ketones Trace (Negative) H 10/27/20 03:00 Urine Blood 2+ (Negative) H 10/27/20 03:00 Urine Nitrite Negative (Negative) 10/27/20 03:00 Urine Bilirubin Negative (Negative) 10/27/20 03:00 Urine Urobilinogen Negative (Negative) 10/27/20 03:00 Ur Leukocyte Esterase Negative (Negative) 10/27/20 03:00 Urine RBC >30 /hpf (0-4) H 10/27/20 03:00 Urine WBC 0-5 /hpf (0-5) 10/27/20 03:00 Ur Epithelial Cells 0-5 /lpf (0-5) 10/27/20 03:00 Urine Bacteria Negative (Negative) 10/27/20 03:00 SARS-CoV-2 Ag (Rapid) Negative (Negative) 10/27/20 04:29 Diagnostic Findings [facility] Patient: CURT CASE (Male) : 43 Status: ER Date: 10/27/20 03:30 Room #: History: PAIN IN MID/LOWER ABD, NAUSEA, VOMITING AND DIARRHEA Slices: [id number] Priors: Tech: Cody Marie @ [phone] Exams: CT ABDOMEN & PELVIS With Contrast Contrast: IV Amt: 92 ML OPTIRAY 320 Accession Numbers: [id number] Preliminary Findings Only See Final Report For Complete Findings CT ABDOMEN & PELVIS With Contrast: Bilateral renal hypodensities which may be cysts. No hydronephrosis. No bowel dilatation. Unremarkable appendix. Sigmoid diverticulosis. Mild thickening versus incomplete distention of the transverse and descending colon. Unable to exclude nonspecific colitis in the appropriate clinical setting. No calcified gallstones. No abdominal aortic aneurysm. Enlarged prostate gland. Fat-containing left inguinal hernia. Radiologist: Jimi Mead M.D. Study ready at 03:32 and initial results transmitted at 03:39 *This report constitutes a preliminary interpretation only. Non-acute findings felt to be unrelated to the clinical presentation may not be discussed in this report. The study will be interpreted and a final report will be generated by the local Radiologist the following shift. To reach the hospital radiology department call [phone]. If a discrepancy is found between the preliminary and final interpretations of this study, please notify us via our Client Portal at [email or web address].You can also fax this report with a description of the discrepancy, or include the final report, to our daytime fax number [phone].If faxing, please indicate the severity of discrepancy using one of the following categories: [ ] 1 - Agree/Informational [ ] 2 - Unlikely to Affect Management [ ] 3 - Possible Eventual Change of Management [ ] 4 - Probable Immediate Change of Management For all other patient related information, please fax us at [phone]. [id number] Code Status & VTE Plan Code Status Full code VTE Prophylaxis Plan VTE Prophylaxis will be ordered: Yes PG Care Time/CCT Total # of Minutes Spent Total Time Spent with Patient: Total time spent is greater than 50% in coordination of care (as documented) at patient's floor/unit and/or counseling patient: Coding Level of Care Code 19118 OBS Care - Level 3 Diagnoses Nausea vomiting and diarrhea R11.2; R19.7 Insomnia G47.00 Hypertension I10
[2020-10-27] MEDS ORDERED: ONDANSETRON INJ 2 MG/ML 2 ML VIAL IV PRN ×2 (06:36→17:47)
[2020-10-27] MEDS ORDERED: PROMETHAZINE HCL 25 MG in SODIUM CHLORIDE 0.9% 50 ML IV PRN (06:36)
--- NOTE | 2020-10-27 07:09 | CT Scan Report ---
HEAD CT NONCONTRAST CT DOSE: 729.78 mGycm HISTORY: dizzy TECHNIQUE: Multiaxial CT images of the head were performed without the use of intravenous contrast. A utomated exposure control was utilized for this study. A dose lowering technique was utilized adheri ng to the principles of ALARA. Comparison: Head CT 08/30/2017. Findings: The paranasal sinuses and mastoid air cells are clear. The calvarium and skull base are int act. There is no mass, hematoma, midline shift, acute infarct. White matter hypodensity is nonspecifi c but suggestive of microvascular ischemic change. The ventricles and sulci demonstrate mild age-rela elisabeth involutional changes. Impression: No significant change compared to the prior study. No acute intracranial abnormality. ACT 112: Negative or not required by law. Electronically signed by: Ricardo Lopes M.D. 10/27/2020 7:08 AM
[2020-10-27] MEDS: NSS + 20MEQ KCL 20 MEQ/1,000 ML BAG IV SCH ×2 (07:57→17:57)
[2020-10-27] MEDS: FAMOTIDINE 20 MG in SYRINGE 3 ML IV SCH ×2 (07:58→21:13)
[2020-10-27] MEDS: HEPARIN SOD 5,000 UNIT/0.5 ML VIAL SQ SCH ×2 (07:58→21:13)
--- NOTE | 2020-10-27 08:01 | XRay Report ---
XR chest 1V portable HISTORY: Epigastric pain. COMPARISON: None. FINDINGS: The lungs are clear. Cardiac silhouette is normal in size. No pleural effusions. No pneumot horax. IMPRESSION: No acute process. ACT 112: Negative or not required by law. Electronically signed by: Ricardo Lopes M.D. 10/27/2020 8:00 AM
[2020-10-27] MEDS: LORazepam 0.5 MG/1 ML VIAL IV PRN ×2 (08:04→21:13)
--- NOTE | 2020-10-27 08:19 | CT Scan Report ---
ABDOMEN AND PELVIS CT WITH IV CONTRAST CT DOSE: 467.58 mGy.cm HISTORY: Mid abdominal pain. TECHNIQUE: Multiaxial CT images of the abdomen and pelvis were performed following the use of intrave nous contrast. A dose lowering technique was utilized adhering to the principles of ALARA. COMPARISON STUDY: None. FINDINGS: A few bibasilar linear densities consistent with subsegmental atelectasis. No pneumoperiton eum. No pneumatosis. No fractures within the visualized osseous structures. The spleen, adrenal gland s, pancreas, gallbladder within normal limits. A few subcentimeter hypodense lesions within the kidne ys and a subcentimeter hypodense lesion within the left hepatic lobe. These are technically too small to characterize but favor cysts. There is an exophytic 1.3 cm hypodense lesion within the right kidn ey which appears to represent a cyst. No hydronephrosis. Mild calcified plaque within the normal lizet ernesto abdominal aorta. No retroperitoneal lymphadenopathy. The main portal vein is patent. No bowel wal l thickening or obstruction. Normal bladder. The prostate gland is mildly enlarged. Colonic diverticu losis. No evidence for acute diverticulitis. Normal appendix. IMPRESSION: 1. No bowel wall thickening or obstruction. 2. Colonic diverticulosis. No evidence for acute diverticulitis. 3. Normal appendix. 4. Additional findings as described above. ACT 112: Negative or not required by law. Electronically signed by: Ricardo Lopes M.D. 10/27/2020 8:18 AM
--- NOTE | 2020-10-27 13:52 | Electrocardiogram Report ---
Test Reason : Blood Pressure : / mmHG Vent. Rate : 053 BPM Atrial Rate : 053 BPM P-R Int : 252 ms QRS Dur : 102 ms QT Int : 492 ms P-R-T Axes : 041 018 031 degrees QTc Int : 461 ms Sinus bradycardia with 1st degree A-V block Otherwise normal ECG No previous ECGs available Confirmed by Neto Nicholas ([id number]) on 10/27/2020 1:51:49 PM Referred By: REFERRED SELF Confirmed By:Neto Nicholas
[2020-10-27] MEDS ORDERED: ONDANSETRON INJ 2 MG/ML 2 ML VIAL IV ONE (17:47)
--- NOTE | 2020-10-27 18:03 | Communication Note ---
Date of Service: October 27, 2020 seen in f/u from early am admission. still some nausea but no vomiting - just occassional dry heave but much better. relates feeling a little dizzy when getting up to bathroom but when revisiting that he notes wasn't that bad. no diarrhea since home. feels like he can take PO - mostly thirsty. not a lot of belly pain vitals noted nad abd soft mild epigastric tenderness no guarding no rebound labs/imaging noted enteritis c/w food poisoning -improving. continue fluids for now, advance diet. hopefully home tomorrow otehrwise as per admission
[2020-10-27] MEDS ORDERED: ACETAMINOPHEN 1,000 MG/100 ML VIAL IV PRN (19:21)
[2020-10-28] MEDS: NSS + 20MEQ KCL 20 MEQ/1,000 ML BAG IV SCH (03:26)
[2020-10-28] MEDS: FAMOTIDINE 20 MG in SYRINGE 3 ML IV SCH (08:42)
[2020-10-28] MEDS: HEPARIN SOD 5,000 UNIT/0.5 ML VIAL SQ SCH (08:45)
--- NOTE | 2020-10-28 19:39 | Discharge Summary ---
Date of Service October 28, 2020 Admission HPI Per Admitting Provider The patient is a 74-year-old male with a past medical history including insomnia and hypertension, who presents to the emergency department with the acute onset at 1030 this evening of nausea, vomiting and diarrhea. The nausea and vomiting have persisted. Patient denies any questionable food intakes, although he did eat steak that he likes to eat rare, and had been baking some type of tart. He denies any recent travels or sick exposures, including to [employer]. He has not had symptoms like this before. He also feels very fatigued and generally weak. Principal Diagnosis infectious enteritis Discharge Exam gen aao pleasant nad heent nc at mmm breathing unlabored no accessory muscles good effort skin no rashes no pallor or icterus abd soft nd nt no guarding no rebound Discharge Data Allergies Allergy/AdvReac Type Severity Reaction Status Date / Time tetanus toxoid, adsorbed Allergy Unknown Unknown Verified 10/27/20 01:16 Consultations 10/27/20 03:59 ED Decision to Admit Stat 10/27/20 06:36 Consult Case Management - Discharge Planning Routine Ordered Studies 10/27/20 00:59 CT abd pelvis IV con only Urgent 10/27/20 04:12 CT head/brain wo con Urgent Hospital Course (1) Nausea vomiting and diarrhea: appears c/w food borne enteritis - improved w supportive care Total Time Total Time Spent Total Time Spent (In Minutes): <30 Discharge Plan Discharge Items Patient Disposition: Home - Self-Care Reason For Visit: INTRACTABLE NAUSEA AND VOMITING Discharge Diagnosis: food poisoning - resolved Condition on Discharge: Good Activity: Resume your previous activity Non-emergency contact: Primary Care Provider Call non-emergency contact if: you have any medication questions and your symptoms worsen Follow-up/Referrals: Paul Pettit [Primary Care Provider] - 11/02/20 9:50 am Diet: Regular Addtl Attending Provider Instructions: as we discussed, it may take a few days to feel totally back to normal Pending Studies at Discharge: Yes Stand-Alone Forms: [facility] [employer] [facility], Smoking Cessation Medications and DC Order Prescriptions: Continued aspirin [Aspirin Low Dose] 81 mg Tablet,Delayed Release (Dr/Ec) 81 mg PO DAILY RF: 0 alprazolam 0.5 mg tablet 0.5 mg PO HS PRN (Reason: Insomnia) RF: 0 lisinopril 5 mg tablet 5 mg PO DAILY RF: 0 Discharge Orders: Discharge Order (Routine); Ordered 10/28/20 Ordered By: Jv Johnston/Other Patient Handouts: Self-Care for Vomiting and Diarrhea Admission Data Admit Date/Time: 10/27/20 05:04 Attending Provider: Jv Ibrahim Admit Provider: Prince Messina Primary Care Provider: Paul Pettit Other Providers: Prince Messina Other Interventions: Discharge Summary Assessment (RN) Last Done: 10/28/20 11:07 Coding Level of Care Code 66898 OBS Care - Discharge Diagnoses Nausea vomiting and diarrhea R11.2; R19.7
--- NOTE | 2020-10-29 06:42 | Electrocardiogram Report ---
Test Reason : Blood Pressure : / mmHG Vent. Rate : 074 BPM Atrial Rate : 074 BPM P-R Int : 198 ms QRS Dur : 098 ms QT Int : 384 ms P-R-T Axes : 048 028 050 degrees QTc Int : 426 ms Sinus rhythm with Premature atrial complexes Minimal voltage criteria for LVH, may be normal variant Borderline ECG When compared with ECG of 27-OCT-2020 01:08, Premature atrial complexes are now Present OR interval has decreased Confirmed by Carlos Eduardo Juarez ([id number]) on 10/29/2020 6:41:39 AM Referred By: REFERRED SELF Confirmed By:Carlos Eduardo Juarez
== END 2020-10-28 12:21 | disposition home or self-care (01) ==
LOC: ED 00:48 → 3N 00:48 → SUATTDRO 05:04 → 3N 05:50

== ENCOUNTER 2025-05-09 15:38 | Inpatient (IN) ==
[2025-05-09 16:05] LABS: Basophils # (auto) 0.06 K/uL (0.00-0.20); Basophils % (auto) 1.1 %; Eosinophils # (auto) 0.19 K/uL (0.00-0.50); Eosinophils % (auto) 3.4 %; Hematocrit (blood only) 44.2 % (42.0-52.0); Hemoglobin 14.7 g/dl (14.0-18.0); Immature Granulocytes # (auto) 0.01 K/uL (0.01-0.20); Immature Granulocytes % (auto) 0.2 %; Lymphocytes # (auto) 2.21 K/uL (1.20-3.40); Lymphocytes % (auto) 39.3 %; Mean Corpuscular Hemoglobin 29.7 pg (25.0-34.0); Mean Corpuscular Hgb Conc 33.3 g/dL (32.0-36.0); Mean Corpuscular Volume 89.3 fL (80.0-100.0); Mean Platelet Volume 9.8 fL (9.4-12.4); Monocytes # (auto) 0.49 K/uL (0.11-0.59); Monocytes % (auto) 8.7 %; Neutrophils # (auto) 2.67 K/uL (1.40-6.50); Neutrophils % (auto) 47.3 %; Platelet Count 259 K/uL (130-400); RDW Coefficient of Variation 13.2 % (11.5-14.5); RDW Standard Deviation 43.4 fL (36.4-46.3); Red Blood Count 4.95 M/uL (4.70-6.10); White Blood Count 5.63 K/ul (4.8-10.8)
--- NOTE | 2025-05-09 16:07 | Emergency Department Note ---
Impression & Plan Atrial flutter with rapid ventricular response, Fatigue ED Provider Note Provider: Armando Rogers MD CHIEF COMPLAINT: Elevated heart rate, fatigue HISTORY OF PRESENT ILLNESS: Patient is a 79-year-old gentleman past medical history of hypertension and constipation presenting here today with reporting over the past week he has noted when taken his blood pressure daily at home that his heart rates been significantly elevated in the 130s. States it has not been changing in the been able to get it down. Reports maybe a little bit of fatigue last several days but has been out doing yard work. Denies significant chest pain or shortness of breath. Denies leg swelling. Did have some recurrence of right flank pain about 2 weeks ago and saw his primary doctor on the 10th of this month but symptoms resolved at that time. Thinks it may have been constipation related. No fevers or significant cough or cold symptoms reported. No history of arrhythmias or A-fib/a flutter in the past. PAST MEDICAL HISTORY: As noted above MEDICATIONS: Reviewed home medications SOCIAL HISTORY: PHYSICAL EXAM: GENERAL: alert and oriented in no acute distress on stretcher Head: normocephalic and atraumatic EYES: No injection, discharge or icterus. EOMI. NECK: Trachea midline. ENT: Mucous membranes pink and moist. LUNGS: Airway patent. No retractions. Breath sounds clear with good air entry bilaterally. HEART: Tachycardic irregular irregular rate and rhythm. No chest wall tenderness ABDOMEN: Soft and non-tender, without guarding or rebound. SKIN: Acyanotic, warm, dry, without rashes EXTREMITIES: Without swelling, tenderness or deformity NEUROLOGICAL: No focal deficits. No aphasia. No facial droop or slurred speech. Ambulatory. EK bpm atrial fibs/flutter without acute ST segment elevation and some nonspecific lateral slight ST depression. QTc 480. CONTINUOUS CARDIAC MONITORING: was ordered and showed a heart rate of 120s to 130s bpm in atrial fibrillation flutter Patient's laboratory studies and imaging reviewed. Differential includes Premature contractions, electrolyte abnormality, cardiac dysrhythmia, thyroid dysfunction, pulmonary embolism, infection, gastrointestinal, as well as other pathologies. IMPRESSION/MEDICAL DECISION MAKING: Patient with appears to be new onset atrial fibs/flutter. Mostly flutter. No history of similar. Elevated heart rate for about a week. No history of similar reported. Has been dealing with some right flank issues but no pain now. Did see PCP 11 days ago. No significant chest pain. Reports some generalized fatigue but no shortness of breath. No significant swelling of the lower extremities. Basic blood work electrolytes and TSH checked here. Given 2 dose of IV metoprolol to see its effect rate control without much improvement. Will start diltiazem drip as well as heparin drip for anticoagulation given stroke risk. Discussed with patient and his who is a retired OR nurse findings. Blood work here without significant anemia, leukocytosis, electrolyte abnormality, renal dysfunction. No liver function abnormalities noted. Troponin normal. Chest x-ray per radiology without findings of fluid overload and minimal cardiomegaly. Hospitalist was contacted to bring in for further cardiac evaluation given his refractory new onset atrial fib/flutter. DIAGNOSIS: Rapid atrial flutter/fib DISPOSITION: Hospitalist will evaluate Patient was agreeable with this plan. Critical Care I have personally spent 34 minutes of critical care time in the direct management of this patient. This includes bedside care, interpretation of diagnostic studies, and testing, discussion with consultants, patient, and family members, and other required patient management activities. These 34 minutes is in excess of all separately billable procedures. Past Med/Surg History Problem List (Updated 05/09/25 @ 16:40 by Armando Rogers M.D.) Fatigue (Acute) Atrial flutter with rapid ventricular response (Acute) Hypertension Insomnia Multiple lacerations (Acute) Multiple lacerations (Acute) Medical History (Updated 05/09/25 @ 16:40 by Armando Rogers M.D.) Intractable nausea and vomiting Nausea vomiting and diarrhea Surgical History No pertinent past surgical history Social History Smoking Status: Never smoker Second Hand Exposure: No; Do You Dip or Chew Tobacco: No; Hx Alcohol Use: Yes Hx Substance Use: No Preferred Language: Pakistani Communication Ability: Effective 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 Beliefs That Will Affect Care: None marital status: Current Living Situation: Spouse Feels Safe at Home: Yes Assistive Devices: None Allergies Allergies Allergy/AdvReac Type Severity Reaction Status Date / Time tetanus toxoid, adsorbed Allergy Unknown HAPPENED Verified 05/09/25 16:47 A CHILD--??FEVER PER PT Home Meds Home Medications Medication Instructions Recorded Confirmed lisinopril 5 mg tablet 5 mg PO DAILY 10/27/20 05/09/25 alprazolam 0.25 mg tablet 0.25 mg PO HS PRN Sleep 05/09/25 05/09/25 [id number] 1 tab PO DAILY 05/09/25 05/09/25 tablet (Multivitamin 50 Plus tablet) sildenafil 50 mg tablet 50 mg PO DIRECTED PRN Sexual 05/09/25 05/09/25 Activity Results & Data (ED) Vital Signs Vital Signs - 24 hr 05/09/25 15:42 05/09/25 15:52 05/09/25 16:07 Temperature 36.8 C Temperature Source Temporal Artery Scan Pulse Rate 137 H 130 H Pulse Rate [Finger] 130 H Pulse Rhythm [Finger] Regular Pulse Strength [Finger] Normal Respiratory Rate 18 15 Respiratory Effort / Characteristics Non-Labored Spontaneous Respiratory Depth Normal Blood Pressure 141/112 H Blood Pressure [Right Arm] 124/97 Blood Pressure Mean 121 Blood Pressure Mean [Right Arm] 106 Blood Pressure Position [Right Arm] Lying Pulse Oximetry 97 96 Oxygen Delivery Method Room Air Room Air Sepsis Recent Fever Within 48 Hours No Sepsis New/Unexplained Change in Mental Status N/A Sepsis Action Taken by Nursing No Action Required 05/09/25 16:11 05/09/25 16:27 05/09/25 16:30 Temperature Temperature Source Pulse Rate 126 H 127 H 127 H Pulse Rate [Finger] Pulse Rhythm [Finger] Pulse Strength [Finger] Respiratory Rate Respiratory Effort / Characteristics Respiratory Depth Blood Pressure 133/98 116/85 113/98 Blood Pressure [Right Arm] Blood Pressure Mean Blood Pressure Mean [Right Arm] Blood Pressure Position [Right Arm] Pulse Oximetry Oxygen Delivery Method Sepsis Recent Fever Within 48 Hours Sepsis New/Unexplained Change in Mental Status Sepsis Action Taken by Nursing 05/09/25 16:45 Temperature Temperature Source Pulse Rate 123 H Pulse Rate [Finger] Pulse Rhythm [Finger] Pulse Strength [Finger] Respiratory Rate Respiratory Effort / Characteristics Respiratory Depth Blood Pressure 119/98 Blood Pressure [Right Arm] Blood Pressure Mean Blood Pressure Mean [Right Arm] Blood Pressure Position [Right Arm] Pulse Oximetry Oxygen Delivery Method Sepsis Recent Fever Within 48 Hours Sepsis New/Unexplained Change in Mental Status Sepsis Action Taken by Nursing Laboratory Data 05/09/25 15:47 05/09/25 15:47 Lab Results 05/09/25 Range/Units 15:47 WBC 5.63 (4.8-10.8) K/ul RBC 4.95 (4.70-6.10) M/uL Hgb 14.7 (14.0-18.0) g/dl Hct 44.2 (42.0-52.0) % MCV 89.3 (80.0-100.0) fL MCH 29.7 (25.0-34.0) pg MCHC 33.3 (32.0-36.0) g/dL RDW Std Deviation 43.4 (36.4-46.3) fL RDW Coeff of Joan 13.2 (11.5-14.5) % Plt Count 259 (130-400) K/uL MPV 9.8 (9.4-12.4) fL Immature Gran % (Auto) 0.2 % Neut % (Auto) 47.3 % Lymph % (Auto) 39.3 % Loup % (Auto) 8.7 % Eos % (Auto) 3.4 % Baso % (Auto) 1.1 % Neut # (Auto) 2.67 (1.40-6.50) K/uL Lymph # (Auto) 2.21 (1.20-3.40) K/uL Loup # (Auto) 0.49 (0.11-0.59) K/uL Eos # (Auto) 0.19 (0.00-0.50) K/uL Baso # (Auto) 0.06 (0.00-0.20) K/uL Immature Gran # (Auto) 0.01 (0.01-0.20) K/uL PT 11.0 (9.0-12.0) Seconds INR 1.0 (0.9-1.1) APTT 28 (21-31) Seconds PTT Ratio 1.0 Sodium 137 (136-145) mmol/L Potassium 4.1 (3.5-5.1) mmol/L Chloride 105 (98-107) mmol/L Carbon Dioxide 25 (21-32) mmol/L Anion Gap 7 (3-11) BUN 15 (6-23) mg/dl Creatinine 0.75 (0.6-1.4) mg/dl Est Cr Clr Drug Dosing 76.0 ml/min eGFR 91.23 BUN/Creatinine Ratio 20.0 (10-20) Glucose 109 H (70-99(Fasting)) mg/dl Calcium 9.2 (8.6-10.3) mg/dl Magnesium 1.8 (1.7-2.4) mg/dl Total Bilirubin 1.0 (0.2-1.0) mg/dl AST 25 (13-39) U/L ALT 28 (7-52) U/L Alkaline Phosphatase 78 (34-104) U/L Troponin I High Sens 9.9 (0-20) pg/ml Total Protein 7.2 (6.0-8.3) gm/dl Albumin 4.3 (3.4-5.0) gm/dl Globulin 2.9 (2.5-4.0) gm/dl Albumin/Globulin Ratio 1.5 (0.9-2) TSH 1.526 (0.300-4.500) uIu/ml Administered Medications Diltiazem HCl 125 mg/ Dextrose 125 mls @ 5 mls/hr IV .Q24H [facility]; Protocol Stop: 06/08/25 16:59 Last Admin: 05/09/25 17:26 Dose: 5 mg/hr, 5 mls/hr Documented By: PRICE Co-signed By: MILADIS Heparin Sodium/Dextrose (Heparin 46305 Unit/500 Ml D5w) 25,000 units in 500 mls @ 17 mls/hr IV .Q24H [facility]; Protocol Stop: 06/08/25 17:29 Last Admin: 05/09/25 17:23 Dose: 850 units/hr, 17 mls/hr Documented By: PRICE Co-signed By: MILADIS Discontinued Medications Heparin Sodium (Porcine) (Heparin Sod (Porcine) 1000 Unit/Ml) 1 units IV NOW ONE Stop: 05/09/25 17:17 Last Admin: 05/09/25 17:24 Dose: 4,000 units Documented By: PRICE Co-signed By: MILADIS Heparin Sodium/Dextrose (Heparin Iv Adult Wt-Based Low-Dose W/ Initial Bolus Protocol) 1 each IV NOW STA; Protocol Stop: 05/09/25 17:01 Last Admin: 05/09/25 17:27 Dose: Not Given Documented By: PRICE Sodium Chloride (Nss) 500 mls @ 999 mls/hr IV .Q31M ONE Stop: 05/09/25 16:51 Last Infusion: 05/09/25 17:01 Dose: Infused Documented By: Admin: 05/09/25 16:29 Dose: 999 mls/hr Documented By: PRICE Metoprolol Tartrate (Metoprolol Tartrate 1 Mg/Ml Vial) 5 mg IV NOW STA Stop: 05/09/25 16:08 Last Admin: 05/09/25 16:11 Dose: 5 mg Documented By: PRICE Metoprolol Tartrate (Metoprolol Tartrate 1 Mg/Ml Vial) 5 mg IV NOW STA Stop: 05/09/25 16:22 Last Admin: 05/09/25 16:30 Dose: 5 mg Documented By: PRICE Miscellaneous (Stat Iv Infusion Titration Per Protocol) 1 each N/A NOW STA Stop: 05/09/25 17:01 Last Admin: 05/09/25 17:27 Dose: Not Given Documented By: PRICE Imaging Data Radiologist's Impression: Chest X-Ray 05/09/25 15:52 EXAM: Radiograph of the Chest 1 View INDICATION: Dysrhythmia TECHNIQUE: Frontal view of the chest. COMPARISON: 10/27/2020 FINDINGS: Lungs and pleural spaces: No consolidation or pulmonary edema. No pleural effusion or pneumothorax. Heart: Stable mildly enlarged cardiac shadow accentuated by technique. Mediastinum: Normal contour. Bones/joints: No fracture, erosion or dislocation. Soft tissues: No abnormality noted. No radiopaque foreign body noted. Vasculature: Stable ectatic aorta with moderate calcification. Upper abdomen: No abnormality noted. IMPRESSION: Stable chronic changes. No acute disease. ACT 112: N/A Electronically signed by Radha Barkley 05-09-2025 4:18 PM Discharge Plan Visit Data Chief Complaint: Tachycardia Stated Complaint: TACHYCARDIA ED Provider: Armando Rogers Discharge Problem: Atrial flutter with rapid ventricular response, Fatigue Patient Disposition: Being Evaluated by Hospitalist Condition: Fair Forms Stand Alone Forms: [employer] Prescriptions Prescriptions: No Action lisinopril 5 mg tablet 5 mg PO DAILY sildenafil 50 mg Tablet 50 mg PO DIRECTED PRN (Reason: Sexual Activity) Rx Instructions: administer 30 minutes to 4 hours before activity alprazolam 0.25 mg tablet 0.25 mg PO HS PRN (Reason: Sleep) Multivitamin 50 Plus Tablet 1 tab PO DAILY Referrals Referrals: Lipscomb,Jassi S., DO [Primary Care Provider] -
[2025-05-09] MEDS: METOPROLOL TARTRATE 1 MG/ML VIAL IV STA ×2 (16:11→16:30)
--- NOTE | 2025-05-09 16:21 | XRay Report ---
EXAM: Radiograph of the Chest 1 View INDICATION: Dysrhythmia TECHNIQUE: Frontal view of the chest. COMPARISON: 10/27/2020 FINDINGS: Lungs and pleural spaces: No consolidation or pulmonary edema. No pleural effusion or pneumothorax. Heart: Stable mildly enlarged cardiac shadow accentuated by technique. Mediastinum: Normal contour. Bones/joints: No fracture, erosion or dislocation. Soft tissues: No abnormality noted. No radiopaque foreign body noted. Vasculature: Stable ectatic aorta with moderate calcification. Upper abdomen: No abnormality noted. IMPRESSION: Stable chronic changes. No acute disease. ACT 112: N/A Electronically signed by Radha Barkley 05-09-2025 4:18 PM
[2025-05-09 16:27] LABS: Albumin Globulin Ratio 1.5 (0.9-2); Albumin Level 4.3 gm/dl (3.4-5.0); Calcium 9.2 mg/dl (8.6-10.3); Globulin 2.9 gm/dl (2.5-4.0); Magnesium 1.8 mg/dl (1.7-2.4); Potassium 4.1 mmol/L (3.5-5.1); Total Protein 7.2 gm/dl (6.0-8.3)
[2025-05-09] MEDS: SODIUM CHLORIDE 0.9% 500 ML IV ONE (16:29)
[2025-05-09 16:34] LABS: Troponin I High Sensitivity 9.9 pg/ml (0-20)
[2025-05-09 16:40] LABS: Partial Thromboplastin Time 28 Seconds (21-31)
[2025-05-09 16:43] LABS: Thyroid Stimulating Hormone 1.526 uIu/ml (0.300-4.500)
[2025-05-09] MEDS: HEPARIN 25000 UNIT/500 ML D5W 25,000 UNITS/500 ML BAG IV SCH (17:23)
[2025-05-09] MEDS: HEPARIN SOD (PORCINE) 1000 UNIT/ML IV ONE (17:24)
[2025-05-09] MEDS: dilTIAZem HCL 125 MG in DEXTROSE 5% 100 ML IV SCH (17:26)
[2025-05-09] MEDS: Heparin IV Adult Wt-Based Low-Dose w/ INITIAL Bolus Protocol IV STA (17:27)
[2025-05-09] MEDS: STAT IV Infusion **Titration per Protocol STA (17:27)
[2025-05-09] MEDS ORDERED: POLYETHYLENE (MIRALAX) 17 GM PACK PO PRN (17:50)
[2025-05-09] MEDS ORDERED: ACETAMINOPHEN 325 MG TAB PO PRN (17:50)
--- NOTE | 2025-05-09 18:04 | History & Physical Report ---
Date of Service May 09, 2025 Assessment & Plan (1) Atrial flutter with rapid ventricular response: Plan Assessment/plan Atrial flutter with RVR Patient presents to the hospital with elevated heart rate; no symptoms of palpitation, shortness of breath or diaphoresis. EKG on admission showing atrial flutter with variable AV block; nonspecific ST changes Potassium of 4.1, magnesium of 1.8. Continue on Cardizem drip started in the ED Also on heparin dripcontinue Replete magnesium with 2 g obtain echocardiogram cardiology consulted continue telemonitoring History of hypertensionon lisinopril as needed; will put on hold Insomniaon Xanax as needed Full code DVT prophylaxis heparin Time spent evaluating patient, direct bedside care, chart review, placing orders, interpretation of diagnostic studies, discussion with consultants, patient, and family members, as well as other required patient management activities is 75 minutes Please note the above document was generated using voice recognition software. It may contain grammatical, syntax or spelling errors. Any formal questions or concerns about the content, text or information contained within the body of this dictation should be directly addressed to the provider for clarification History of Present Illness Chief Complaint: Elevated heart rate Primary Care Provider: Jassi Lipscomb, DO History obtained from chart review and interview with the patient Patient with a past medical history of hypertension on as needed lisinopril, presented to the hospital after he noticed his heart rate to be elevated in 130s while checking his blood pressure at home. Patient reports that his baseline heart rate is 60s. He denies any symptoms. He denies palpitations, diaphoresis, chest pain, shortness of breath, abdominal pain or urinary symptoms. On presentation to the ED, he was normotensive, afebrile. EKG showed a flutter with variable AV block. Patient was given 2 doses of IV metoprolol without much improvement. He was started on Cardizem drip and was referred for admission Allergies Allergy/AdvReac Type Severity Reaction Status Date / Time tetanus toxoid, adsorbed Allergy Unknown HAPPENED Verified 05/09/25 16:47 A CHILD--??FEVER PER PT Home Medications Medication Instructions Recorded Confirmed Type lisinopril 5 mg tablet 5 mg PO DAILY 10/27/20 05/09/25 History alprazolam 0.25 mg tablet 0.25 mg PO HS PRN Sleep 05/09/25 05/09/25 History [id number]-xchhswyf-egrvdn 1 tab PO DAILY 05/09/25 05/09/25 History tablet (Multivitamin 50 Plus tablet) sildenafil 50 mg tablet 50 mg PO DIRECTED PRN Sexual 05/09/25 05/09/25 History Activity Past Med/Surg History Problem List (Updated 05/09/25 @ 16:40 by Armando Rogers M.D.) Fatigue (Acute) Atrial flutter with rapid ventricular response (Acute) Hypertension Insomnia Multiple lacerations (Acute) Multiple lacerations (Acute) Medical History (Updated 05/09/25 @ 16:40 by Armando Rogers M.D.) Intractable nausea and vomiting Nausea vomiting and diarrhea Surgical History No pertinent past surgical history Social History Smoking Status: Never smoker Second Hand Exposure: No; Do You Dip or Chew Tobacco: No; Hx Alcohol Use: Yes Hx Substance Use: No Preferred Language: Sammarinese Communication Ability: Effective 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 Respiratory: normal respiratory effort, lungs clear to auscultation, no wheeze, rales, rhonchi. Normal insp/exp effort, no accessory muscle use Cardiovascular: Irregular, no murmur, no edema Vessels: no JVD or carotid bruit Chest: normal inspection of chest Abdomen: normal bowel sounds, soft, nontender, no hepatosplenomegaly Musculoskeletal: no cyanosis or clubbing, extremities motor strength 5/5 Skin: no rashes, warm and dry normal turgor Neurologic: PERRL, EOMI, accommodation nl, no face palsy, no dysarthria CN's II- XI intact bilaterally and moves all extremities Psychiatric: A+Ox3, euthymic affect Results & Data Results & Data Vital Signs (Past 12 Hours) Vital Signs Temp Pulse Pulse Resp BP BP Pulse Ox 05/09/25 16:45 123 H 119/98 05/09/25 16:30 127 H 113/98 05/09/25 16:27 127 H 116/85 05/09/25 16:11 126 H 133/98 05/09/25 16:07 130 H 05/09/25 15:52 130 H 15 124/97 96 05/09/25 15:42 36.8 C 137 H 18 141/112 H 97 O2 Del Method 05/09/25 16:45 05/09/25 16:30 05/09/25 16:27 05/09/25 16:11 05/09/25 16:07 05/09/25 15:52 Room Air 05/09/25 15:42 Room Air
[2025-05-09] MEDS: MAGNESIUM SULFATE / D5W 1 GM/100 ML BAG IV SCH (19:14)
[2025-05-09 22:13] LABS: Appearance Urine Clear (Clear); Bilirubin Urine Negative (Negative); Blood Urine Negative (Negative); Color Urine Yellow; Glucose Urine UA Negative (Negative); Ketones Urine Negative (Negative); Leukocyte Esterase Urine Negative (Negative); Nitrite Urine Negative (Negative); Protein Urine Negative (Negative); Specific Gravity Urine 1.007 (1.000-1.030); Urobilinogen Urine Negative (Negative); pH Urine 5.5 (4.5-7.5)
[2025-05-09] MEDS: METOPROLOL TARTRATE 25 MG TAB PO SCH (22:56)
[2025-05-09] MEDS: DOCUSATE SODIUM 100 MG CAP PO SCH (22:58)
[2025-05-09] MEDS: ALPRAZolam 0.25 MG TABLET PO PRN (22:58)
[2025-05-10 00:07] LABS: ANTI-Xa, UFH(UnfractionatedHep 0.34 IU/ml (0.3-0.7)
[2025-05-10 06:08] LABS: Hematocrit (blood only) 41.3 % (42.0-52.0); Hemoglobin 13.5 g/dl (14.0-18.0); Mean Corpuscular Hemoglobin 29.5 pg (25.0-34.0); Mean Corpuscular Hgb Conc 32.7 g/dL (32.0-36.0); Mean Corpuscular Volume 90.2 fL (80.0-100.0); Mean Platelet Volume 10.1 fL (9.4-12.4); Platelet Count 218 K/uL (130-400); RDW Coefficient of Variation 13.3 % (11.5-14.5); RDW Standard Deviation 43.7 fL (36.4-46.3); Red Blood Count 4.58 M/uL (4.70-6.10); White Blood Count 5.46 K/ul (4.8-10.8)
[2025-05-10 06:25] LABS: BUN Creatinine Ratio 18.6 (10-20); Calcium 8.6 mg/dl (8.6-10.3); Creatinine Clr Calc Pharmacy 96.6 ml/min; Potassium 3.8 mmol/L (3.5-5.1)
[2025-05-10 06:29] LABS: ANTI-Xa, UFH(UnfractionatedHep 0.32 IU/ml (0.3-0.7)
[2025-05-10 06:30] LABS: Basophils # (auto) 0.06 K/uL (0.00-0.20); Basophils % (auto) 1.1 %; Eosinophils # (auto) 0.26 K/uL (0.00-0.50); Eosinophils % (auto) 4.8 %; Immature Granulocytes # (auto) 0.01 K/uL (0.01-0.20); Immature Granulocytes % (auto) 0.2 %; Lymphocytes # (auto) 2.75 K/uL (1.20-3.40); Lymphocytes % (auto) 50.4 %; Monocytes # (auto) 0.44 K/uL (0.11-0.59); Monocytes % (auto) 8.1 %; Neutrophils # (auto) 1.94 K/uL (1.40-6.50); Neutrophils % (auto) 35.4 %
--- NOTE | 2025-05-10 08:15 | Cardiology Consultation ---
Date of Consultation May 10, 2025 Assessment & Plan (1) Atrial flutter with rapid ventricular response: (2) Hypertension: (3) Fatigue: Plan Patient is an 79-year-old male admitted to [facility] with newly diagnosed atrial flutter with rapid ventricular response. He is relatively asymptomatic other than mild general fatigue. Tachycardia initially noted on Home blood pressure cuff earlier this week with a heart rate of 130s. Due to persistently elevated heart rate, he came to the ER. Initially started on IV Lopressor then IV diltiazem infusion for rate control. Metoprolol tartrate 25 p.o. 4 times daily was also added. This morning his heart rates are well-controlled with diltiazem 10 mg running through his IV. I have asked his nurse to wean to 5 mg and hopefully discontinue in the next few hours if his heart rates remain well-controlled. Will continue to titrate metoprolol for rate control. Transition from IV heparin to Eliquis 5 mg twice daily for stroke prophylaxis. Treatment options and stroke risks were discussed with the patient. CHADSVASC score of 3 (age/HTN). Echo has been completed and results pending. If HR's improve and he tolerates oral metoprolol, likely can be discharged on BB and Elqiuis and will arrange CV in 4 weeks. However, if his HR's fail to improve with the beta elijah therapy, he may require MICHAEL/CV prior to discharge. In regards to his hypertension - can hold lisinopril for now as his BP is controlled and he only takes lisinopril PRN. Further recommendations as IV diltiazem is weaned and further recommendations pending evaluation with Dr. Carty. I spent a total of 60 minutes on the date of service in preparation, delivery, and documentation of the care provided to this patient, excluding any time spent in the performance of separately billed services. Bri Campbell PA-C Department of Cardiology, [facility] This chart was completed in part utilizing Speech Voice Recognition Software. Grammatical errors, random word insertions, pronoun errors, and incomplete sentences are an occasional consequence of this system due to software limitations, ambient noise, and hardware issues. Any formal questions or concerns about the content, text, or information contained within the body of this dictation should be directly addressed to the provider for clarification. Supervising Physician Co-Signing Physician Notes Attending attestation: Case reviewed with the advanced practitioner. I have personally performed a history and physical examination on the patient. I have reviewed the advanced practitioner's documentation on the date of service referenced in note, and I agree with, and take responsibility for the plan of care. Subjective: Patient seen and examined. Accompanied by his spouse, Lise during my assessment. Asymptomatic. He is now on IV diltiazem, 5 mg/h, telemetry reveals rate controlled atrial flutter with rate in the range of 70 to 90 bpm. Exam: Cardiovascular: Regular rhythm, 11/24 systolic murmur, no edema Data: Summary of transthoracic echocardiogram performed 05/10/2025 and interpret independently: The study is technically adequate for the evaluation of the referral indication. Rate controlled atrial flutter was present during the study. There is mild concentric left ventricular hypertrophy. No regional wall motion abnormalities noted. Left ventricular systolic function is low normal. Left Ventricular Ejection Fraction = 50-55%. The right ventricle is normal in size and function. The left atrium is mildly dilated. The aortic valve is trileaflet. The aortic valve is mildly calcified. Mild aortic regurgitation. Aortic stenosis is absent. There is mild mitral regurgitation. Doppler findings do not suggest pulmonary hypertension. Impression/ Plan: Persistent atrial flutter, duration at least 1 week [id number] score of 2 given age and history of hypertension * Rate controlled on metoprolol and low-dose IV diltiazem, 5 mg/h. * Discontinue IV diltiazem * Change metoprolol to metoprolol succinate 50 mg twice daily * If rate stable off of the diltiazem, we will plan on discharge today on Eliquis 5 mg twice daily. Outpatient cardiology follow-up to be arranged with plans to proceed with direct-current cardioversion after 4 weeks of uninterrupted anticoagulation if he remains in atrial flutter. I spent a total of 20 minutes coordinating, documenting, and providing care for this patient excluding time spent in the performance of separately billed services or time spent by another provider. Stanley Carty DO History of Present Illness Reason for Consultation: Atrial flutter with RVR Requesting Physician: Nicki Olivas Attending Physician: Dr. Carty History of Present Illness Patient is an 79 year old male who presented to [facility] with complaints of elevated HR noted at home in the 130's Upon arrival, he was found to be in atrial flutter with RVR. New diagnosis. Treated with several doses of IV Lopressor without much improvement. Started on IV diltiazem and oral metoprolol tartrate 25 mg 4 times per day. Also started on IV heparin for anticoagulation/stroke prophylaxis. High-sensitivity troponin was unremarkable. Other labs without acute findings. Onset of tachycardia, likely several days ago. Patient had PCP appointment on 04/28/2025 and heart rate was recorded as "Regular". No HR was recorded in vitals signs however and no EKG done. Patient reports he was taking his BP earlier this week and found his HR to be elevated in the 130's. His wanted him to come to the ER, but he refused. After ongoing findings of tachycardia on home machine, he came to the ER. He is asymptomatic. No chest pain or SOB. No sense of palpitations or tachypalpitations. No orthopnea, PND or edema. No fever, cough, chills. He did report increased fatigue over the last week or 2. also reported she noted him being more "tired". He is prone to dehydration and issues with constipation and diarrhea. He had a bout last week of constipation then diarrhea but feels this is his 'normal'. no other recent med changes or recent illnesses. history includes: 1. hypertension (situational) - only takes lisinopril 5 mg as needed and this is rarely 2. Insomnia No prior cardiovascular history. At time of consult, patient resting in bed, feeling well. Denies acute cardiac complaints. On IV diltiazem and HR's trending lower in the 70's. Also received morning metoprolol. No history of CVA. No history of blood clots. No history of GI bleeding or bleeding complications. Allergies Allergy/AdvReac Type Severity Reaction Status Date / Time tetanus toxoid, adsorbed Allergy Unknown HAPPENED Verified 05/09/25 16:47 A CHILD--??FEVER PER PT Home Medications Medication Instructions Recorded Confirmed Type lisinopril 5 mg tablet 5 mg PO DAILY 10/27/20 05/09/25 History alprazolam 0.25 mg tablet 0.25 mg PO HS PRN Sleep 05/09/25 05/09/25 History [id number] 1 tab PO DAILY 05/09/25 05/09/25 History tablet (Multivitamin 50 Plus tablet) sildenafil 50 mg tablet 50 mg PO DIRECTED PRN Sexual 05/09/25 05/09/25 History Activity Patient History Medical History (Updated 05/10/25 @ 10:54 by Bri Campbell PA-C) Intractable nausea and vomiting Nausea vomiting and diarrhea Surgical History No pertinent past surgical history Social History Smoking Status: Never smoker Second Hand Exposure: No; Do You Dip or Chew Tobacco: No; Hx Alcohol Use: Yes Alcohol type: wine Hx Substance Use: No Preferred Language: Armenian Communication Ability: Effective 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 Beliefs That Will Affect Care: None marital status: Current Living Situation: Spouse and Family Feels Safe at Home: Yes Assistive Devices: None Review of Systems Review of Systems: All systems reviewed & are unremarkable except as noted in HPI & below Physical Exam Constitutional: WD/WN, vitals as above well developed; no acute distress Neck: trachea midline, no thyromegaly Respiratory: normal respiratory effort, lungs clear to auscultation Cardiovascular: Rate/Rhythm: + irregularly irregular Heart Sounds: no murmur Vessels: no JVD Extremities: no edema Gastrointestinal (Abdomen): normal bowel sounds, soft, nontender, no hepatosplenomegaly Skin: no rashes, warm and dry Neurologic: PERRL, EOMI, accommodation nl, no face palsy, no dysarthria Results & Data Vital Signs (Past 12 Hours) Vital Signs Temp Pulse Resp BP Pulse Ox O2 Del Method 05/10/25 07:00 36.4 C L 88 18 106/72 94 Room Air 05/10/25 03:26 36.4 C L 117 H 18 111/74 95 Room Air 05/09/25 22:54 36.6 C 77 18 116/84 96 Room Air 05/09/25 21:30 36.6 C 127 H 16 137/91 97 Room Air Laboratory Results Cardiac Enzymes 05/09/25 Range/Units 15:47 AST 25 (13-39) U/L Troponin I High Sens 9.9 (0-20) pg/ml Coagulation 05/09/25 Range/Units 15:47 PT 11.0 (9.0-12.0) Seconds APTT 28 (21-31) Seconds CBC 05/09/25 05/10/25 Range/Units 15:47 05:41 WBC 5.63 5.46 (4.8-10.8) K/ul RBC 4.95 4.58 L (4.70-6.10) M/uL Hgb 14.7 13.5 L (14.0-18.0) g/dl Hct 44.2 41.3 L (42.0-52.0) % Plt Count 259 218 (130-400) K/uL Neut # (Auto) 2.67 1.94 (1.40-6.50) K/uL Lymph # (Auto) 2.21 2.75 (1.20-3.40) K/uL [place] # (Auto) 0.49 0.44 (0.11-0.59) K/uL Eos # (Auto) 0.19 0.26 (0.00-0.50) K/uL Baso # (Auto) 0.06 0.06 (0.00-0.20) K/uL Comprehensive Metabolic Panel 05/09/25 05/10/25 Range/Units 15:47 05:41 Sodium 137 139 (136-145) mmol/L Potassium 4.1 3.8 (3.5-5.1) mmol/L Chloride 105 109 H (98-107) mmol/L Carbon Dioxide 25 23 (21-32) mmol/L BUN 15 11 (6-23) mg/dl Creatinine 0.75 0.59 L (0.6-1.4) mg/dl Glucose 109 H 91 (70-99(Fasting)) mg/dl Calcium 9.2 8.6 (8.6-10.3) mg/dl AST 25 (13-39) U/L ALT 28 (7-52) U/L Alkaline Phosphatase 78 (34-104) U/L Total Protein 7.2 (6.0-8.3) gm/dl Albumin 4.3 (3.4-5.0) gm/dl Intake and Output 05/09/25 05/10/25 05/10/25 22:59 06:59 14:59 Intake Total 769.750 / 1279.283 509.533 / 1279.283 Output Total 201 / 201 Balance 769.750 / 1078.283 308.533 / 1078.283 Intake: IV 619.750 / 1079.283 459.533 / 1079.283 Heparin 42964 Unit/500 ml D5w 231.2 / 231.2 25,000 units In 500 ml @ 850 UNITS/HR 17 mls/hr IV .Q24H [facility] Rx#:[id number] Magnesium Sulfate / D5w 1 gm In 100 / 200 100 / 200 100 ml @ 50 mls/hr IV Q2H [facility] Rx#:[id number] Sodium Chloride 0.9% 500 ml @ 500 / 500 999 mls/hr IV .Q31M ONE Rx#: [id number] dilTIAZem HCL 125 mg In 19.750 / 148.083 128.333 / 148.083 Dextrose 5% 100 ml @ 15 MG/HR 15 mls/hr IV .Q8H20M [facility] Rx#: [id number] Oral 150 / 200 50 / 200 Output: Urine 200 / 200 # Bowel Movements / Other: # Unmeasured Voids 1 Weight 75.438 kg 75.4 kg Weight Measurement Method [facility] Diagnostic Findings Telemetry reviewed: Atrial flutter with variable ventricular rates ranging 60s to 100s at rest. EKG reviewed from admission Dated 05/09/2025: Atrial flutter with variable AV block with a rapid ventricular response at 134 bpm Nonspecific T wave abnormality in inferolateral leads. EKG reviewed from 05/10/2025: Atrial flutter with variable AV block. Controlled ventricular rates in the 60s. Prior ST wave abnormality in inferior lateral leads has resolved. Echocardiogram - pending Chest X-Ray 05/09/25 15:52 IMPRESSION: Stable chronic changes. No acute disease. Prior outside data reviewed: echo report reviewed from Aug 2017: Normal LVEF at 55%. No wall motion abnormalities mild LVH Aortic sclerosis without stenosis Mild MR No pulm hypertension Medications Administered Current Inpatient Medications Acetaminophen (Acetaminophen 325 Mg Tab) 650 mg PO Q4H PRN PRN Reason: Pain or Fever Stop: 06/08/25 17:49 Alprazolam (Alprazolam 0.25 Mg Tablet) 0.25 mg PO HS PRN PRN Reason: Sleep Stop: 06/08/25 20:18 Last Admin: 05/09/25 22:58 Dose: 0.25 mg Docusate Sodium (Docusate Sodium 100 Mg Cap) 100 mg PO DAILY [facility] Stop: 06/08/25 21:54 Last Admin: 05/09/25 22:58 Dose: 100 mg Diltiazem HCl 125 mg/ Dextrose 125 mls @ 15 mls/hr IV .Q8H20M [facility]; Protocol Stop: 06/08/25 16:59 Last Titration: 05/10/25 06:59 Dose: 10 mg/hr, 10 mls/hr Heparin Sodium/Dextrose (Heparin 21635 Unit/500 Ml D5w) 25,000 units in 500 mls @ 17 mls/hr IV .Q24H [facility]; Protocol Stop: 06/08/25 17:29 Last Titration: 05/10/25 06:59 Dose: 850 units/hr, 17 mls/hr Metoprolol Tartrate (Metoprolol Tartrate 25 Mg Tab) 25 mg PO QID [facility] Stop: 06/08/25 20:59 Last Admin: 05/09/25 22:56 Dose: 25 mg Multivitamins/Minerals (Cerovite Adv Formula Tab) 1 tab PO DAILY [facility] Stop: 06/09/25 08:59 Polyethylene Glycol (Polyethylene (Miralax) 17 Gm Pack) 17 gm PO DAILY PRN PRN Reason: Constipation Stop: 06/08/25 17:49 (2) Hypertension Hypertension type: primary hypertension Qualified Code(s): I10 - Essential (primary) hypertension
[2025-05-10] MEDS: CEROVITE ADV FORMULA TAB PO SCH (08:33)
[2025-05-10] MEDS: APIXABAN 5 MG TABLET PO SCH (11:00)
--- NOTE | 2025-05-10 13:20 | Hospitalist Progress Note ---
Date of Service May 10, 2025 Assessment & Plan (1) Atrial flutter with rapid ventricular response: Plan Assessment/plan Atrial flutter with RVR Patient presents to the hospital with elevated heart rate; no symptoms of palpitation, shortness of breath or diaphoresis. EKG on admission showing atrial flutter with variable AV block; nonspecific ST changes Patient admitted to telemetry floor on Cardizem drip; is started on metoprolol 25 mg p.o. 4 times daily; will wean off Cardizem as tolerated. Heparin drip changed to Eliquis. Echocardiogram pending Continue telemonitoring History of hypertensionon lisinopril as needed; will put on hold Insomniaon Xanax as needed Full code DVT prophylaxis eliquis Please note the above document was generated using voice recognition software. It may contain grammatical, syntax or spelling errors. Any formal questions or concerns about the content, text or information contained within the body of this dictation should be directly addressed to the provider for clarification Admission and Anticipated Discharge Date Admission Date: May 09, 2025 Subjective Patient seen and examined at bedside. He continues to report that he does not have any symptoms at this present time Ventricular rate well-controlled Review of Systems Review of Systems: All systems reviewed & are unremarkable except as noted in Subjective Physical Exam Physical Exam: On physical examination; Constitutional: Alert oriented x 3; not in distress. Respiratory: normal respiratory effort, lungs clear to auscultation, no wheeze, rales, rhonchi. Normal insp/exp effort, no accessory muscle use Cardiovascular: Irregular, no murmur, no edema Vessels: no JVD or carotid bruit Chest: normal inspection of chest Abdomen: normal bowel sounds, soft, nontender, no hepatosplenomegaly Musculoskeletal: no cyanosis or clubbing, extremities motor strength 5/5 Skin: no rashes, warm and dry normal turgor Neurologic: PERRL, EOMI, accommodation nl, no face palsy, no dysarthria CN's II- XI intact bilaterally and moves all extremities Psychiatric: A+Ox3, euthymic affect Results & Data Results & Data Vital Signs (Past 12 Hours) Vital Signs Temp Pulse Resp BP Pulse Ox O2 Del Method 05/10/25 12:02 36.4 C L 88 18 108/80 99 Room Air 05/10/25 07:00 36.4 C L 88 18 106/72 94 Room Air 05/10/25 03:26 36.4 C L 117 H 18 111/74 95 Room Air
--- NOTE | 2025-05-10 14:58 | Discharge Summary ---
Date of Service May 10, 2025 Admission HPI Per Admitting Provider History obtained from chart review and interview with the patient Patient with a past medical history of hypertension on as needed lisinopril, presented to the hospital after he noticed his heart rate to be elevated in 130s while checking his blood pressure at home. Patient reports that his baseline heart rate is 60s. He denies any symptoms. He denies palpitations, diaphoresis, chest pain, shortness of breath, abdominal pain or urinary symptoms. On presentation to the ED, he was normotensive, afebrile. EKG showed a flutter with variable AV block. Patient was given 2 doses of IV metoprolol without much improvement. He was started on Cardizem drip and was referred for admission Admission Exam Per Admitting Provider Constitutional: Alert oriented x 3; not in distress. Respiratory: normal respiratory effort, lungs clear to auscultation, no wheeze, rales, rhonchi. Normal insp/exp effort, no accessory muscle use Cardiovascular: Irregular, no murmur, no edema Vessels: no JVD or carotid bruit Chest: normal inspection of chest Abdomen: normal bowel sounds, soft, nontender, no hepatosplenomegaly Musculoskeletal: no cyanosis or clubbing, extremities motor strength 5/5 Skin: no rashes, warm and dry normal turgor Neurologic: PERRL, EOMI, accommodation nl, no face palsy, no dysarthria CN's II- XI intact bilaterally and moves all extremities Psychiatric: A+Ox3, euthymic affect Principal Diagnosis A flutter with RVR Discharge Exam Constitutional: WD/WN, vitals as above, NAD, sitting up in bed, pleasant, conversing easily Respiratory: normal respiratory effort, lungs clear to auscultation, no wheeze, rales, rhonchi. Normal insp/exp effort, no accessory muscle use Cardiovascular: irregular, no murmur, no edema Vessels: no JVD or carotid bruit Chest: normal inspection of chest Abdomen: normal bowel sounds, soft, nontender, no hepatosplenomegaly Musculoskeletal: no cyanosis or clubbing, extremities motor strength 5/5 Skin: no rashes, warm and dry normal turgor Neurologic: PERRL, EOMI, accommodation nl, no face palsy, no dysarthria CN's II- XI intact bilaterally and moves all extremities Psychiatric: A+Ox3, euthymic affect Discharge Data Allergies Allergy/AdvReac Type Severity Reaction Status Date / Time tetanus toxoid, adsorbed Allergy Unknown HAPPENED Verified 05/09/25 16:47 A CHILD--??FEVER PER PT Consultations 05/09/25 17:16 ED Decision to Admit Stat 05/09/25 17:50 Consult Cardiology Routine Hospital Course (1) Atrial flutter with rapid ventricular response: Plan Assessment/plan Atrial flutter with RVR Patient presents to the hospital with elevated heart rate; no symptoms of palpitation, shortness of breath or diaphoresis. EKG on admission showing atrial flutter with variable AV block; nonspecific ST changes Patient admitted to telemetry floor on Cardizem drip; is started on metoprolol 25 mg p.o. 4 times daily; will wean off Cardizem as tolerated. Heparin drip changed to Eliquis. Echocardiogram showed EF of 50 to 55%. Patient's ventricular rate improved on metoprolol. At the time of the discharge, he was prescribed metoprolol succinate 50 mg twice a day and Eliquis 5 mg twice a day. Lisinopril was discontinued. Patient to follow-up with PCP and cardiology as outpatient. Please note the above document was generated using voice recognition software. It may contain grammatical, syntax or spelling errors. Any formal questions or concerns about the content, text or information contained within the body of this dictation should be directly addressed to the provider for clarification Total Time Total Time Spent Total Time Spent (In Minutes): 45 Total Time Includes: Examination of the Patient, Discharge Planning, Medication Reconciliation, Communication With Other Providers and Other Discharge Plan Discharge Items Patient Disposition: Home - Self-Care Reason For Visit: ATRIAL FLUTTER Discharge Diagnosis: A.flutter with RVR Condition on Discharge: Fair Activity: Resume your previous activity Non-emergency contact: Primary Care Provider Call non-emergency contact if: you have any medication questions and your symptoms worsen Follow-up/Referrals: Jassi Lipscomb, [Primary Care Provider] - Diet: Regular Addtl Attending Provider Instructions: You are hospitalized due to elevated heart rate. You are found to have irregular heart rhythm called atrial vin. You were evaluated by cardiology and underwent echocardiogram which showed normal heart function. You are prescribed following medication; Take metoprolol 50 mg twice a day; this medication helps to improve your heart rate. Take Eliquis 5 mg twice a day; this the blood thinner and prevent stroke. An appointment will be set up with your primary care doctor for follow-up. You will also receive information regarding follow-up with cardiology as well. Pending Studies at Discharge: No Stand-Alone Forms: My [facility] Submittable, Smoking Cessation Medications and DC Order Prescriptions: New metoprolol succinate 50 mg Tablet Extended Release 24 Hr 50 mg PO BID Qty: 60 0RF Eliquis 5 mg Tablet 5 mg PO BID 30 Days Qty: 60 0RF Continued sildenafil 50 mg Tablet 50 mg PO DIRECTED PRN (Reason: Sexual Activity) Rx Instructions: administer 30 minutes to 4 hours before activity alprazolam 0.25 mg tablet 0.25 mg PO HS PRN (Reason: Sleep) Multivitamin 50 Plus Tablet 1 tab PO DAILY Discontinued lisinopril 5 mg tablet 5 mg PO DAILY Admission Data Admit Date/Time: 05/09/25 17:50 Attending Provider: Nixon Davila Admit Provider: Nixon Davila Primary Care Provider: Jassi Lipscomb Other Providers: Nixon Davila; Stanley Carty
[2025-05-10] MEDS: METOPROLOL SUCC 50MG EXT REL TAB PO SCH (17:03)
[2025-05-10] MEDS ORDERED: METOPROLOL SUCC 50MG EXT REL TAB PO SCH (21:00)
[2025-05-11 07:01] LABS: ANTI-Xa, UFH(UnfractionatedHep 0.69 IU/ml (0.3-0.7)
[2025-05-11] MEDS ORDERED: BENZOCAINE/TETRACAIN/BUTAM 50 APPLN/5 GM CAN EXT ONE (08:45)
--- NOTE | 2025-05-11 09:51 | Cardiology Progress Note ---
Date of Service May 11, 2025 Assessment & Plan (1) Atrial flutter with rapid ventricular response: (2) Hypertension: (3) Fatigue: Plan 05/10/25 Patient is an 79-year-old male admitted to [facility] with newly diagnosed atrial flutter with rapid ventricular response. He is relatively asymptomatic other than mild general fatigue. Tachycardia initially noted on Home blood pressure cuff earlier this week with a heart rate of 130s. Due to persistently elevated heart rate, he came to the ER. Initially started on IV Lopressor then IV diltiazem infusion for rate control. Metoprolol tartrate 25 p.o. 4 times daily was also added. This morning his heart rates are well-controlled with diltiazem 10 mg running through his IV. I have asked his nurse to wean to 5 mg and hopefully discontinue in the next few hours if his heart rates remain well-controlled. Will continue to titrate metoprolol for rate control. Transition from IV heparin to Eliquis 5 mg twice daily for stroke prophylaxis. Treatment options and stroke risks were discussed with the patient. CHADSVASC score of 3 (age/HTN). Echo has been completed and results pending. If HR's improve and he tolerates oral metoprolol, likely can be discharged on BB and Elqiuis and will arrange CV in 4 weeks. However, if his HR's fail to improve with the beta elijah therapy, he may require MICHAEL/CV prior to discharge. In regards to his hypertension - can hold lisinopril for now as his BP is controlled and he only takes lisinopril PRN. Further recommendations as IV diltiazem is weaned and further recommendations pending evaluation with Dr. Carty. 05/11/25: Unfortunately as IV diltiazem was weaned yesterday, patient's ventricular rates were uncontrolled, canceling discharge plans. He is NPO MICHAEL/CV benefits/risks discussed in detail with the patient and his . He is agreeable to proceeding. Continue metoprolol succinate 50 mg BID Continue Eliquis 5 mg BID Anticipate discharge later this afternoon after procedure. Case discussed with Dr. Morejon I spent a total of 30 minutes on the date of service in preparation, delivery, and documentation of the care provided to this patient, excluding any time spent in the performance of separately billed services. Bri Campbell PA-C Department of Cardiology, [facility] This chart was completed in part utilizing Speech Voice Recognition Software. Grammatical errors, random word insertions, pronoun errors, and incomplete sentences are an occasional consequence of this system due to software limitations, ambient noise, and hardware issues. Any formal questions or concerns about the content, text, or information contained within the body of this dictation should be directly addressed to the provider for clarification. Admission and Anticipated Discharge Date Admission Date: May 09, 2025 Supervising Physician Co-Signing Physician Notes I have personally performed a history and physical examination on the patient. I have reviewed the advance practitioner's documentation, and I agree with, and take responsibility for the plan of care. 79-year-old male presenting with atrial flutter and rapid ventricular response. Heart rate sustained at 120 bpm. Unknown duration although suspect greater than 1 week. Echocardiogram demonstrating left ventricular ejection fraction of 50 to 55%. Recommend transesophageal echo guided direct-current cardioversion. Risk, benefits, terms to procedure discussed. Patient agreeable to proceed. Continue Eliquis and metoprolol. If cardioversion is successful, patient may be discharged to home later today with cardiology follow-up in the outpatient setting in 1 to 2 weeks. I spent a total of 25 minutes on the date of service in preparation, delivery, and documentation of the care provided to this patient, excluding any time spent in the performance of separately billed services. Jonnathan Morejon DO, [facility] Subjective Patient agitated this morning about not going home last night and no explanation provided? Apparently when IV diltiazem was turned off later yesterday afternoon/evening, patient's HR's spiked in the the 120's. It was decided he should stay for ongoing treatment and possible MICHAEL/CV. Hospitalist made him NPO at midnight. At time of evaluation this morning, patient reports feeling fine. No symptoms of palpitations, tachypalpitations, chest pain or SOB. After further discussion regarding procedure of MICHAEL/CV, he is agreeable to proceeding. Review of Systems Review of Systems: All systems reviewed & are unremarkable except as noted in HPI & below Physical Exam Constitutional: WD/WN, vitals as above well developed; no acute distress Neck: trachea midline, no thyromegaly Respiratory: normal respiratory effort, lungs clear to auscultation Cardiovascular: Rate/Rhythm: + irregularly irregular Heart Sounds: no murmur Vessels: no JVD Extremities: no edema Gastrointestinal (Abdomen): normal bowel sounds, soft, nontender, no hepatosplenomegaly Skin: no rashes, warm and dry Neurologic: PERRL, EOMI, accommodation nl, no face palsy, no dysarthria Results & Data Vital Signs (Past 12 Hours) Vital Signs Temp Pulse Pulse Resp BP Pulse Ox O2 Del Method 05/11/25 08:00 36.8 C 124 H 18 119/61 97 Room Air 05/11/25 04:20 36.5 C 122 H 16 97/66 L 96 Room Air 05/10/25 22:36 123 H 05/10/25 22:24 36.6 C 122 H 16 103/70 97 Room Air Laboratory Results Intake and Output 05/10/25 05/11/25 05/11/25 22:59 06:59 14:59 Intake Total 200 / 316.300 Output Total 250 / 250 Balance 200 / 66.300 -250 / 66.300 Intake: Oral 200 / 200 Output: Urine 250 / 250 Other: # Unmeasured Voids 1 Weight 74.3 kg Weight Measurement Method Built in [facility] Diagnostic Findings telemetry reviewed: Atrial flutter in the 110-130's. Medications Administered Current Inpatient Medications Acetaminophen (Acetaminophen 325 Mg Tab) 650 mg PO Q4H PRN PRN Reason: Pain or Fever Stop: 06/08/25 17:49 Alprazolam (Alprazolam 0.25 Mg Tablet) 0.25 mg PO HS PRN PRN Reason: Sleep Stop: 06/08/25 20:18 Last Admin: 05/10/25 21:38 Dose: 0.25 mg Apixaban (Apixaban 5 Mg Tablet) 5 mg PO BID ATA Stop: 06/09/25 10:44 Last Admin: 05/11/25 09:21 Dose: 5 mg Docusate Sodium (Docusate Sodium 100 Mg Cap) 100 mg PO DAILY ATA Stop: 06/08/25 21:54 Last Admin: 05/11/25 09:22 Dose: Not Given Metoprolol Succinate (Metoprolol Succ 50mg Ext Rel Tab) 50 mg PO BID ATA Stop: 06/09/25 16:44 Last Admin: 05/11/25 09:21 Dose: 50 mg Multivitamins/Minerals (Cerovite Adv Formula Tab) 1 tab PO DAILY ATA Stop: 06/09/25 08:59 Last Admin: 05/11/25 09:22 Dose: Not Given Polyethylene Glycol (Polyethylene (Miralax) 17 Gm Pack) 17 gm PO DAILY PRN PRN Reason: Constipation Stop: 06/08/25 17:49 (2) Hypertension Hypertension type: primary hypertension Qualified Code(s): I10 - Essential (primary) hypertension
[2025-05-11] MEDS ORDERED: PROPOFOL IV EMULSION 10 MG/ML 20 ML VIAL IV ONE ×2 (10:37→11:54)
--- NOTE | 2025-05-11 11:48 | Anesthesiology Consultation ---
Date of Service May 11, 2025 Assessment & Plan Chart Review Chart Review: Acceptable Risk for Surgery and Patient NOT seen in Pre Admission Testing Consults Requested none ASA ASA2 Proposed Anesthesia Anesthesia Type: MAC Risk / Benefits Reviewed With: PT / POA / Parent / Guardian, Accepts Plan and Informed Consent Obtained History Surgery Operation Date: 05/11/25 12:00 Proposed Procedures p Transesophageal Echo w/Anesthesia - Jonnathan Morejon DO s Cardioversion Application Support Administrator w/Anesthesia - Jonnathan Morejon DO Height/Weight Height: 5 ft 8 in Weight: 74.3 kg Allergies Allergy/AdvReac Type Severity Reaction Status Date / Time tetanus toxoid, adsorbed Allergy Unknown HAPPENED Verified 05/09/25 16:47 A CHILD--??FEVER PER PT Medications Home Medications Medication Instructions Recorded Confirmed Last Taken lisinopril 5 mg tablet 5 mg PO DAILY 10/27/20 05/09/25 05/09/25 alprazolam 0.25 mg tablet 0.25 mg PO HS PRN Sleep 05/09/25 05/09/25 Unknown [id number]-[id number] 1 tab PO DAILY 05/09/25 05/09/25 05/09/25 tablet (Multivitamin 50 Plus tablet) sildenafil 50 mg tablet 50 mg PO DIRECTED PRN Sexual 05/09/25 05/09/25 Unknown Activity apixaban 5 mg tablet (Eliquis) 5 mg PO BID 30 days #60 tabs 05/10/25 Unknown metoprolol succinate 50 mg 50 mg PO BID #60 tabs 05/10/25 Unknown tablet,extended release 24 hr Active Medications Generic Name Dose Route Start Last Admin Trade Name Jt PRN Reason Stop Dose Admin Alprazolam 0.25 mg 05/09/25 20:19 05/10/25 21:38 Alprazolam 0.25 Mg Tablet PO 06/08/25 20:18 0.25 mg HS PRN Administration Sleep Apixaban 5 mg 05/10/25 10:45 05/11/25 09:21 Apixaban 5 Mg Tablet PO 06/09/25 10:44 5 mg BID ATA Administration Docusate Sodium 100 mg 05/09/25 21:55 05/11/25 09:22 Docusate Sodium 100 Mg Cap PO 06/08/25 21:54 Not Given DAILY ATA Metoprolol Succinate 50 mg 05/10/25 16:45 05/11/25 09:21 Metoprolol Succ 50mg Ext Rel Tab PO 06/09/25 16:44 50 mg BID ATA Administration Multivitamins/Minerals 1 tab 05/10/25 09:00 05/11/25 09:22 Cerovite Adv Formula Tab PO 06/09/25 08:59 Not Given DAILY ATA NPO Date Last Intake of Fluids: 05/10/25 Time Last Intake of Fluids: 20:00 Date Last Intake of Solids: 05/10/25 Time Last Intake of Solids: 20:00 Past Medical History Medical History Intractable nausea and vomiting Nausea vomiting and diarrhea Exercise / Class Metabolic Activity 1 > 8 Run/Swim/Ski/Tennis Past Surgical History Surgical History No pertinent past surgical history Past Anesthesia History No Hx of Anesthesia Complications and No Family Hx of Anesthesia Complications History of PONV No Hx of PONV and No Hx of Motion Sickness Social History Smoking Status: Never smoker Do You Dip or Chew Tobacco: No Hx Alcohol Use: Yes Alcohol type: wine alcohol intake frequency: a few times a month Hx Substance Use: No substance use type: does not use Review of Systems ROS Unobtainable: All systems reviewed & are unremarkable except as noted in HPI & below Physical Exam Vital Signs Last Vital Signs Temp 36.8 C 05/11/25 08:00 Pulse 124 H 05/11/25 08:00 Resp 18 05/11/25 08:00 BP 119/61 05/11/25 08:00 Pulse Ox 97 05/11/25 08:00 O2 Del Method Room Air 05/11/25 08:00 ENMT Mouth: no TMJ abnormality Thyromental Distance: > or= 3.5 Finger Breadths Mallampati Class: II Neck normal visual inspection and trachea midline; neck extension not limited Respiratory normal respiratory effort Auscultation: lungs clear to auscultation bilaterally Cardiovascular Rate/Rhythm: regular rate and regular rhythm Heart Sounds: no murmur Musculoskeletal Spine: normal cervical ROM Extremities: full ROM of extremities Neurologic moves all extremities Psychiatric Orientation: alert and oriented x 3 Testing Laboratory Results 05/10/25 05:41 05/10/25 05:41 PT 11.0 Seconds (9.0-12.0) 05/09/25 15:47 INR 1.0 (0.9-1.1) 05/09/25 15:47 APTT 28 Seconds (21-31) 05/09/25 15:47 Urine Color Yellow 05/09/25 19:19 Urine Appearance Clear (Clear) 05/09/25 19:19 Urine pH 5.5 (4.5-7.5) 05/09/25 19:19 Ur Specific Chauncey 1.007 (1.000-1.030) 05/09/25 19:19 Urine Protein Negative (Negative) 05/09/25 19:19 Urine Glucose (UA) Negative (Negative) 05/09/25 19:19 Urine Ketones Negative (Negative) 05/09/25 19:19 Urine Nitrite Negative (Negative) 05/09/25 19:19 Ur Leukocyte Esterase Negative (Negative) 05/09/25 19:19
[2025-05-11] MEDS ORDERED: ePHEDrine sulfate 50 MG/5 ML SYR ONE (11:54)
[2025-05-11 12:24] VITALS: TEMP 98.1
[2025-05-11 12:48] VITALS: RESP 14
[2025-05-11 12:49] VITALS: BP 110/58; O2SAT 98
--- NOTE | 2025-05-11 13:07 | Discharge Summary ---
Date of Service May 11, 2025 Admission HPI Per Admitting Provider History obtained from chart review and interview with the patient Patient with a past medical history of hypertension on as needed lisinopril, presented to the hospital after he noticed his heart rate to be elevated in 130s while checking his blood pressure at home. Patient reports that his baseline heart rate is 60s. He denies any symptoms. He denies palpitations, diaphoresis, chest pain, shortness of breath, abdominal pain or urinary symptoms. On presentation to the ED, he was normotensive, afebrile. EKG showed a flutter with variable AV block. Patient was given 2 doses of IV metoprolol without much improvement. He was started on Cardizem drip and was referred for admission Admission Exam Per Admitting Provider Constitutional: Alert oriented x 3; not in distress. Respiratory: normal respiratory effort, lungs clear to auscultation, no wheeze, rales, rhonchi. Normal insp/exp effort, no accessory muscle use Cardiovascular: Irregular, no murmur, no edema Vessels: no JVD or carotid bruit Chest: normal inspection of chest Abdomen: normal bowel sounds, soft, nontender, no hepatosplenomegaly Musculoskeletal: no cyanosis or clubbing, extremities motor strength 5/5 Skin: no rashes, warm and dry normal turgor Neurologic: PERRL, EOMI, accommodation nl, no face palsy, no dysarthria CN's II- XI intact bilaterally and moves all extremities Psychiatric: A+Ox3, euthymic affect Principal Diagnosis Atrial flutter with RVR Status post MICHAEL with cardioversion Discharge Exam Constitutional: WD/WN, vitals as above, NAD, sitting up in bed, pleasant, conversing easily Respiratory: normal respiratory effort, lungs clear to auscultation, no wheeze, rales, rhonchi. Normal insp/exp effort, no accessory muscle use Cardiovascular: RRR, no murmur, no edema Vessels: no JVD or carotid bruit Chest: normal inspection of chest Abdomen: normal bowel sounds, soft, nontender, no hepatosplenomegaly Musculoskeletal: no cyanosis or clubbing, extremities motor strength 5/5 Skin: no rashes, warm and dry normal turgor Neurologic: PERRL, EOMI, accommodation nl, no face palsy, no dysarthria CN's II- XI intact bilaterally and moves all extremities Psychiatric: A+Ox3, euthymic affect Discharge Data Allergies Allergy/AdvReac Type Severity Reaction Status Date / Time tetanus toxoid, adsorbed Allergy Unknown HAPPENED Verified 05/09/25 16:47 A CHILD--??FEVER PER PT Consultations 05/09/25 17:16 ED Decision to Admit Stat 05/09/25 17:50 Consult Cardiology Routine Procedures Performed Operation Date: 05/11/25 12:00 Actual Procedures p Trans-Esophageal Echo - Jonnathan Morejon DO s Cardioversion Trash Man w/Anesthesia - Jonnathan Morejon DO Hospital Course (1) Atrial flutter with rapid ventricular response: Plan Atrial flutter with RVR Patient presents to the hospital with elevated heart rate; no symptoms of palpitation, shortness of breath or diaphoresis. EKG on admission showing atrial flutter with variable AV block; nonspecific ST changes Patient was started on Cardizem drip and was referred for admission to telemetry. He was also started on heparin drip for stroke prophylaxis. Patient's ventricular rate continued to be elevated despite attempts of rate control with metoprolol after Cardizem was stopped. Patient underwent MICHAEL with cardioversion on 05/11/2025. He was discharged on metoprolol succinate and Eliquis; will follow-up with the PCP. Please note the above document was generated using voice recognition software. It may contain grammatical, syntax or spelling errors. Any formal questions or concerns about the content, text or information contained within the body of this dictation should be directly addressed to the provider for clarification Total Time Total Time Spent Total Time Spent (In Minutes): 45 Total Time Includes: Examination of the Patient, Discharge Planning, Medication Reconciliation, Communication With Other Providers and Other Discharge Plan Discharge Items Patient Disposition: Home - Self-Care Reason For Visit: ATRIAL FLUTTER Discharge Diagnosis: A.flutter with RVR Condition on Discharge: Fair Activity: Resume your previous activity Non-emergency contact: Primary Care Provider Call non-emergency contact if: you have any medication questions and your symptoms worsen Follow-up/Referrals: Jassi Lipscomb DO [Primary Care Provider] - (Date & Time 05/18/2025 1:20 PM Provider: Jassi Lipscomb DO [facility] ) Diet: Regular Addtl Attending Provider Instructions: You are hospitalized due to elevated heart rate. You are found to have irregular heart rhythm called atrial flutter. You were evaluated by cardiology and underwent echocardiogram which showed normal heart function. You are prescribed following medication; Take metoprolol 50 mg twice a day; this medication helps to improve your heart rate. Take Eliquis 5 mg twice a day; this the blood thinner and prevent stroke. An appointment will be set up with your primary care doctor for follow-up. You will also receive information regarding follow-up with cardiology as well. Pending Studies at Discharge: No Stand-Alone Forms: My [facility], Smoking Cessation Medications and DC Order Prescriptions: New metoprolol succinate 50 mg Tablet Extended Release 24 Hr 50 mg PO BID Qty: 60 0RF Eliquis 5 mg Tablet 5 mg PO BID 30 Days Qty: 60 0RF Continued sildenafil 50 mg Tablet 50 mg PO DIRECTED PRN (Reason: Sexual Activity) Rx Instructions: administer 30 minutes to 4 hours before activity alprazolam 0.25 mg tablet 0.25 mg PO HS PRN (Reason: Sleep) Multivitamin 50 Plus Tablet 1 tab PO DAILY Discontinued lisinopril 5 mg tablet 5 mg PO DAILY Discharge Orders: Discharge Order (Routine); Ordered 05/11/25 Ordered By: Nixon Davila Admission Data Admit Date/Time: 05/09/25 17:50 Attending Provider: Nixon Davila Admit Provider: Nixon Davila Primary Care Provider: Jassi Lipscomb Other Providers: Nixon Davila; Stanley Carty
--- NOTE | 2025-05-11 13:35 | Anesthesiology Progress Note ---
Date of Service May 11, 2025 Anesthesia Post Procedure Vital Signs Vital Signs: Temp Pulse Pulse Pulse Resp BP Pulse Ox 05/11/25 12:45 65 14 110/58 L 98 05/11/25 12:30 64 14 113/58 L 97 05/11/25 12:00 36.7 C 118 H 18 129/74 98 05/11/25 11:55 58 L 14 149/103 H 95 05/11/25 08:00 122 H 05/11/25 08:00 36.8 C 124 H 18 119/61 97 05/11/25 04:20 36.5 C 122 H 16 97/66 L 96 05/10/25 22:36 123 H 05/10/25 22:24 36.6 C 122 H 16 103/70 97 05/10/25 19:33 36.8 C 123 H 18 129/87 97 05/10/25 19:00 05/10/25 15:54 112 H 05/10/25 15:38 36.8 C 72 18 106/63 97 05/10/25 15:36 36.8 C 72 18 106/63 97 O2 Del Method O2 Del Method 05/11/25 12:45 Room Air 05/11/25 12:30 Room Air 05/11/25 12:00 Room Air 05/11/25 11:55 Room Air 05/11/25 08:00 05/11/25 08:00 Room Air 05/11/25 04:20 Room Air 05/10/25 22:36 05/10/25 22:24 Room Air 05/10/25 19:33 Room Air 05/10/25 19:00 Room Air 05/10/25 15:54 05/10/25 15:38 Room Air 05/10/25 15:36 Room Air Transfer of Care Handoff Completed per policy Notes Mental Status: alert / awake / arousable Patient Amnestic to Procedure: Yes Nausea / Vomiting: adequately controlled Pain: adequately controlled Airway Patency, RR, SpO2: stable & adequate BP & HR: stable & adequate Hydration State: stable & adequate Anesthetic Complications: no major complications apparent and Pt Satisfied with anesthetic care
--- NOTE | 2025-05-11 13:41 | Cardioversion ---
Date of Service May 11, 2025 Electrical Cardioversion Rpt Electrical Cardioversion Report Indication: Atrial flutter with rapid ventricular response. Complications: None Estimated blood loss: None Anesthesia: Conscious sedation provided by the anesthesia service with propofol. Please see separate report. Procedural summary: Patient was brought to the PACU in a fasting state. Transesophageal echocardiogram was performed prior to cardioversion. No evidence of left atrial appendage thrombus. Please see separate report. Defibrillator pads were placed in an anterior and posterior position. After the MICHAEL probe was removed, the defibrillator was synced to the QRS complex. A single 150 J shock delivered. Patient converted from atrial flutter with 2-1 conduction to sinus rhythm. Patient tolerated procedure well. No focal neurologic deficit post procedure. Conclusion: Successful transesophageal echo guided direct-current cardioversion from atrial flutter to sinus rhythm with 150 J. Jonnathan Morejon DO, [facility]
[2025-05-11 14:31] VITALS: PULSE 75
--- NOTE | 2025-05-12 15:23 | Electrocardiogram Report ---
Test Reason : Blood Pressure : */* mmHG Vent. Rate : 134 BPM Atrial Rate : 268 BPM P-R Int : * ms QRS Dur : 94 ms QT Int : 322 ms P-R-T Axes : 237 20 -45 degrees QTcB Int : 480 ms Atrial flutter with variable A-V block Nonspecific ST abnormality Abnormal ECG When compared with ECG of 28-Oct-2020 01:01, Atrial flutter has replaced Sinus rhythm Vent. rate has increased by 60 bpm Confirmed by Joon Navarro ([id number]) on 05/12/2025 3:23:33 PM Referred By: Confirmed By: Joon Navarro
--- NOTE | 2025-05-12 16:28 | Electrocardiogram Report ---
Test Reason : Blood Pressure : */* mmHG Vent. Rate : 64 BPM Atrial Rate : 64 BPM P-R Int : 320 ms QRS Dur : 100 ms QT Int : 428 ms P-R-T Axes : -17 14 17 degrees QTcB Int : 441 ms Poor data quality, interpretation may be adversely affected Sinus rhythm with 1st degree A-V block Abnormal ECG When compared with ECG of 09-May-2025 15:48, (unconfirmed) Sinus rhythm has replaced Atrial flutter Vent. rate has decreased by 70 bpm Confirmed by Joon Navarro ([id number]) on 05/12/2025 4:27:53 PM Referred By: Jassi Lipscomb Confirmed By: Joon Navarro
--- NOTE | 2025-05-12 16:55 | Electrocardiogram Report ---
Test Reason : Blood Pressure : */* mmHG Vent. Rate : 76 BPM Atrial Rate : 76 BPM P-R Int : 262 ms QRS Dur : 96 ms QT Int : 408 ms P-R-T Axes : 99 18 12 degrees QTcB Int : 459 ms Sinus rhythm with 1st degree A-V block with Premature atrial complexes Otherwise normal ECG When compared with ECG of 10-May-2025 10:27, (unconfirmed) Premature atrial complexes are now Present Confirmed by Joon Navarro ([id number]) on 05/12/2025 4:55:20 PM Referred By: Jassi Lipscomb Confirmed By: Joon Navarro
== END 2025-05-11 15:27 | disposition home or self-care (01) | DRG 310 ==
LOC: ED 15:38 → EDINP 17:50 → 2S 20:19